=== PATIENT | male | born 1960 | race Caucasian/White ===

== ENCOUNTER → 2017-04-08 | Outpatient (REF) ==
--- NOTE | 2017-04-08 11:07 | Diagnostic Imaging Report ---
INDICATION: Right knee pain and popping. TIME OF EXAM: 11:11 AM. FINDINGS: Three views of the right knee demonstrate medial and patellofemoral compartmental degenerative change with joint space narrowing and marginal spurring. There is spurring of the tibial spines. The lateral compartment is well maintained. No fracture, dislocation, or effusion is detected. IMPRESSION: Degenerative changes. No acute bony abnormality is detected. Dictated by: Dictated on workstation # [id number]
== END | disposition home or self-care (01) ==
LOC: OCC 10:30
PROVIDERS: ATTEND Nurse Practitioner Family
CPT/HCPCS: 73562

== ENCOUNTER → 2017-04-10 | Outpatient (REF) ==
--- NOTE | 2017-04-10 10:28 | Diagnostic Imaging Report ---
PROCEDURE: MRI right joint lower extremity without contrast. TECHNIQUE: Multiplanar, multisequence non contrast-enhanced MRI of the right lower extremity was accomplished. INDICATION: Right medial knee pain with popping for several weeks, pain progressively getting worse. No known injury. COMPARISON: Radiographs from 04/08/2017. FINDINGS: No acute fracture or dislocation is seen in the right knee. There is a severe osteoarthritis in the medial compartment of the right knee with underlying bone marrow edema and articular surface irregularity. Osteophytes are seen in all three compartments. A small joint effusion is seen. The articular cartilage in the patellofemoral compartment demonstrates a focal fissure overlying the medial facet. The articular cartilage in the medial compartment is nearly completely absent. The lateral compartment articular cartilage demonstrates heterogeneity and surface irregularity without large full thickness defect seen. There is extensive complex degenerative tearing of the posterior horn and body of the medial meniscus. There are two multilobulated cyst like structures posterior to the posterior horn of the medial meniscus, one measuring 9 x 4 mm, and one measuring 17 x 5 mm on axial imaging, likely a parameniscal cyst. The lateral meniscus appears intact. The anterior and posterior cruciate ligaments are intact. The medial collateral ligament is thickened and bowed, related to the adjacent medial compartment pathology, but no discrete tear is seen. The lateral collateral ligamentous complex appears intact. The extensor mechanism is intact, with mild tendinosis of the proximal patellar tendon. There is mild edema in Hoffa's fat pad. Mild subcutaneous edema is seen anterior to the patellar tendon. The surrounding soft tissues about the knee are otherwise unremarkable. IMPRESSION: 1. Tricompartmental osteoarthritis of the right knee, most pronounced and severe in the medial compartment, with near complete cartilage loss in the medial compartment. 2. Extensive complex degenerative tearing of the posterior horn and body of the medial meniscus, with associated posterior para-meniscal cysts. 3. Small joint effusion. Dictated by: Dictated on workstation # [id number]
== END | disposition home or self-care (01) ==
LOC: RAD 08:50
PROVIDERS: ATTEND Nurse Practitioner Family
CPT/HCPCS: 73721

== ENCOUNTER 2019-08-04 09:10 | Outpatient (RCR) | payer BC ==
[2019-07-27 12:47] VITALS: BP 153/100
[2019-07-27 13:17] LABS: BASOPHILS % (AUTO) 0 % (0-10); EOSINOPHILS # (AUTO) 0.2 10^3/uL (0.0-0.3); EOSINOPHILS % (AUTO) 2 % (0-10); HEMATOCRIT 42 % (40-54); HEMOGLOBIN 14.5 G/DL (13.3-17.7); LYMPHOCYTES # (AUTO) 1.5 X 10^3 (1.0-4.0); LYMPHOCYTES % (AUTO) 21 % (12-44); MEAN CORPUSCULAR HEMOGLOBIN 32 PG (25-34); MEAN CORPUSCULAR HGB CONC 35 G/DL (32-36); MEAN CORPUSCULAR VOLUME 93 FL (80-99); MEAN PLATELET VOLUME 9.8 FL (7.4-10.4); MONOCYTES # (AUTO) 0.9 X 10^3 (0.0-1.0); MONOCYTES % (AUTO) 13 % (0-12); NEUTROPHILS # (AUTO) 4.6 X 10^3 (1.8-7.8); NEUTROPHILS % (AUTO) 64 % (42-75); PLATELET COUNT 238 10^3/uL (130-400); RED CELL DISTRIBUTION WIDTH 13.5 % (10.0-14.5); WHITE BLOOD COUNT 7.2 10^3/uL (4.3-11.0)
[2019-07-27 13:17] LABS: BILIRUBIN,URINE NEGATIVE (NEGATIVE); CLARITY,URINE CLEAR; COLOR,URINE YELLOW; GLUCOSE, URINE (UA) NEGATIVE (NEGATIVE); KETONES,URINE NEGATIVE (NEGATIVE); LEUKOCYTE ESTERASE ,URINE NEGATIVE (NEGATIVE); NITRITE,URINE NEGATIVE (NEGATIVE); PROTEIN,URINE NEGATIVE (NEGATIVE)
[2019-07-27 13:37] LABS: ALANINE AMINOTRANSFERASE 42 U/L (0-55); ALBUMIN 4.1 GM/DL (3.2-4.5); ALKALINE PHOSPHATASE 70 U/L (40-136); BILIRUBIN,TOTAL 0.6 MG/DL (0.1-1.0); BUN/CREATININE RATIO 16; CARBON DIOXIDE 28 MMOL/L (21-32); CHLORIDE 103 MMOL/L (98-107); CREATININE SERUM 0.92 MG/DL (0.60-1.30); GFR ESTIMATED > 60; GLUCOSE 91 MG/DL (70-105); SODIUM 138 MMOL/L (135-145)
[2019-07-27 13:50] LABS: INR 0.9 (0.8-1.4); PROTHROMBIN TIME PATIENT 12.4 SEC (12.2-14.7)
[2019-07-27 13:51] LABS: AMORPHOUS SEDIMENT,UR RARE AMOR URATES /LPF; BACTERIA,URINE NEGATIVE /HPF; WBC,URINE 0-2 /HPF
[2019-07-27 13:59] LABS: ERYTHROCYTE SEDIMENTATION RATE 5 MM/HR (0-30)
--- NOTE | 2019-07-27 16:22 | Diagnostic Imaging Report ---
INDICATION: Preop for right total knee replacement. TIME OF EXAM: 1:20 PM. COMPARISON: No prior studies are available for comparison. FINDINGS: The heart size is normal. There is some tortuosity of the descending thoracic aorta. Lungs are hyperinflated consistent with COPD. No infiltrates are seen. There is no effusion or pneumothorax. IMPRESSION: COPD. No acute cardiopulmonary process is detected. Dictated by: Dictated on workstation # [id number]
[~2019-08-04] VITALS: Ht 182 cm; Wt 95.9 kg
[~2019-08-04 09:10] MED LIST: MULT-1136 PO
== END 2019-08-04 14:46 | disposition home or self-care (01) ==
LOC: PREOP 09:10
PROVIDERS: ATTEND Orthopaedic Surgery
DX: Z01.810 Encounter for preprocedural cardiovascular examination (principal); Z01.811 Encounter for preprocedural respiratory examination; Z01.812 Encounter for preprocedural laboratory examination; M17.11 Unilateral primary osteoarthritis, right knee; R53.83 Other fatigue; Z11.2 Encounter for screening for other bacterial diseases; Z11.59 Encounter for screening for other viral diseases; J44.9 Chronic obstructive pulmonary disease, unspecified
CPT/HCPCS: 36415; 71046; 80053; 81000; 85025; 85610; 85652; 86850; 86900; 86901; 87081; 87635; 93005

== ENCOUNTER 2019-08-09 09:47 | Inpatient (IN) | payer BC ==
--- NOTE | 2019-07-31 12:09 | HISTORY AND PHYSICAL ---
DATE OF SERVICE: 08/09/2019 DATE OF ADMISSION: 08/09/2019. This will be for inpatient admission on 08/09/2019 for right total knee arthroplasty. The patient will require regular inpatient admission due to comorbidities, pain management and need for physical therapy. HISTORY OF PRESENT ILLNESS: The patient is a 58-year-old gentleman with complaints of progressively worsening right knee pain. He has undergone treatment with injections and anti-inflammatories as well as activity modifications without relief. He reports activity limitations due to the pain in his knee. He reports no recent injuries. Due to functional impairment and failure to improve with conservative measures, the patient elected to proceed with surgical intervention. REVIEW OF SYSTEMS: No chest pain, no shortness of breath, no dysuria. RADIOGRAPHS: Reveal complete loss of medial patellofemoral joint space sclerosis noted in his medial compartment. PAST MEDICAL HISTORY: Denies. PAST SURGICAL HISTORY: Right rotator cuff. FAMILY HISTORY: Significant for ischemic heart disease. PRIMARY CARE PHYSICIAN: None. MEDICATIONS: Aspirin. ALLERGIES: No known drug allergies. SOCIAL HISTORY: The patient drinks alcohol socially. Denies tobacco use. PHYSICAL EXAMINATION: GENERAL: The patient is well-developed, well-nourished, in no acute distress. HEENT: Normocephalic, atraumatic. Pupils are equal, round and reactive to light. Oropharynx is clear. NECK: Supple, no lymphadenopathy. LUNGS: Clear to auscultation bilaterally. HEART: Regular rate and rhythm. ABDOMEN: Soft, nontender, nondistended. EXTREMITIES: the right knee demonstrates range of motion 0/2/125. There is a mild effusion. There is no erythema or warmth. There is negative Miroslava, negative anterior and posterior drawer. No varus valgus laxity, negative pivot shift. He is tender along his posterior medial joint line. He has marked pain with Katharina's medially. There is crepitus with range of motion. IMPRESSION: Severe right knee osteoarthritis, unresponsive to conservative measures. PLAN: Right total knee arthroplasty. The risks, benefits, options, ramifications and recovery have been discussed at length with the patient. He understands and wishes to proceed. Job ID: [id number] DocumentID: [id number] Dictated Date: 07/31/2019 10:32:27 Assistant Child Care Teacher Date: 07/31/2019 12:08:30 Dictated By: CHAI SHAY MD
[2019-08-09] VITALS (10 sets, daily range): BP systolic 86–150; BP diastolic 60–103
[~2019-08-09] VITALS: Ht 182.9 cm; Wt 97.4 kg
[~2019-08-09 09:47] MED LIST changes: +ACETAMINOPHEN 325 MG TABLET PO PRN; +ONDANSETRON 4 MG/2 ML (SDV) Z0FRAN IVP PRN; +diphenhydrAMINE 50 MG/ML INJ (BENADRYL) IVP PRN; +morphine PCA 100 MG/100 ML BAG IV PRN
[2019-08-09] MEDS ORDERED: MIDAZOLAM 2 MG/2 ML (VERSED) VIAL ONE (09:57)
[2019-08-09] MEDS ORDERED: BUPIVACAINE 0.5% 30 ML (SENSORCAINE) VIAL ONE (09:57)
[2019-08-09] MEDS ORDERED: fentaNYL INJECTION 100 MCG/2 ML AMP ONE (09:57)
[2019-08-09] MEDS ORDERED: CEFUROXIME 1.5 GM (ZINACEF) VIAL ONE (10:25)
[2019-08-09] MEDS ORDERED: WATER (STERILE) FOR INJECTION 20 ML ONE (10:25)
--- OUTSIDE RECORDS SUMMARY | 2019-08-09 10:26 | XMS REPORT | Continuity of Care Document ---
Author Organization Unknown Address Unknown Phone Unavailable Allergies Active Description Code Type Severity Reaction Onset Reported/Identified Relationship to Patient Clinical Status Yes No Known Drug Allergies [id number] Drug Allergy Unknown N/A 07/27/2019 Medications There is no data. Problems Date Dx Coded Attending Type Code Diagnosis Diagnosed By 08/01/2019 LAURITA MCINTOSH, CHAI Sidhu Ot M17.11 UNILATERAL PRIMARY OSTEOARTHRITIS, RIGHT 08/01/2019 LAURITA MCINTOSH, CHAI Sidhu Ot Z01.818 ENCOUNTER FOR OTHER PREPROCEDURAL EXAMIN Procedures There is no data. Results Test Result Range [facility] - 05/25/19 11:17 GLUCOSE 86 mg/dL 65-99 UREA NITROGEN (BUN) 18 mg/dL 7-25 CREATININE 1.02 mg/dL 0.70-1.33 eGFR NON-AFR. DJIBOUTIAN 81 mL/min/1.73m2 > OR = 60 eGFR 93 mL/min/1.73m2 > OR = 60 BUN/CREATININE RATIO NOT APPLICABLE (calc) 6-22 SODIUM 138 mmol/L 135-146 POTASSIUM 4.4 mmol/L 3.5-5.3 CHLORIDE 102 mmol/L 98-110 CARBON DIOXIDE 30 mmol/L 20-32 CALCIUM 9.2 mg/dL 8.6-10.3 PROTEIN, TOTAL 6.6 g/dL 6.1-8.1 ALBUMIN 4.4 g/dL 3.6-5.1 GLOBULIN 2.2 g/dL (calc) 1.9-3.7 ALBUMIN/GLOBULIN RATIO 2.0 (calc) 1.0-2. 5 BILIRUBIN, TOTAL 0.7 mg/dL 0.2-1.2 ALKALINE PHOSPHATASE 81 U/L 35-144 AST 37 U/L 10-35 ALT 36 U/L 9-46 CBC - 05/25/19 11:17 WHITE BLOOD CELL COUNT 6.1 Thousand/uL 3 .8-10.8 RED BLOOD CELL COUNT 4.84 Million/uL 4.2 0-5.80 HEMOGLOBIN 15.1 g/dL 13.2-17.1 HEMATOCRIT 45.5 % 38.5-50.0 MCV 94.0 fL 80.0-100.0 MCH 31.2 pg 27.0-33.0 MCHC 33.2 g/dL 32.0-36.0 RDW 13.0 % 11.0-15.0 PLATELET COUNT 253 Thousand/uL 140-400 MPV 10.5 fL 7.5-12.5 ABSOLUTE NEUTROPHILS 3843 cells/uL 1500- 7800 ABSOLUTE LYMPHOCYTES 1470 cells/uL 850-3 900 ABSOLUTE MONOCYTES 634 cells/uL 200-950 ABSOLUTE EOSINOPHILS 122 cells/uL 15-500 ABSOLUTE BASOPHILS 31 cells/uL 0-200 NEUTROPHILS 63 % NRG LYMPHOCYTES 24.1 % NRG MONOCYTES 10.4 % NRG EOSINOPHILS 2.0 % NRG BASOPHILS 0.5 % NRG Complete blood count (CBC) with automate d white blood cell (WBC) differential - 07/27/19 13:00 Blood leukocytes automated count (number/volume) 7.2 10*3/uL 4.3-11.0 Blood erythrocytes automated count (number/volume) 4.52 10*6/uL 4.35-5.85 Venous blood hemoglobin measurement (mass/volume) 14.5 g/dL 13.3-17.7 Blood hematocrit (volume fraction) 42 % 40-54 Automated erythrocyte mean corpuscular volume 93 [ foz_us] 80-99 Automated erythrocyte mean corpuscular h emoglobin (mass per erythrocyte) 32 pg 25-34 Automated erythrocyte mean corpuscular h emoglobin concentration measurement (mass/volume) 35 g/dL 32-36 Automated erythrocyte distribution width ratio 13. 5 % 10.0- 14.5 Automated blood platelet count (count/volume) 238 10*3/uL 130-400 Automated blood platelet mean volume measurement 9.8 [foz_us] 7.4-10.4 Automated blood neutrophils/100 leukocytes 64 % 42-75 Automated blood lymphocytes/100 leukocytes 21 % 12-44 Blood monocytes/100 leukocytes 13 % 0-12 Automated blood eosinophils/100 leukocytes 2 % 0-10 Automated blood basophils/100 leukocytes 0 % 0-10 Blood neutrophils automated count (number/volume) 4.6 10*3 1.8-7.8 Blood lymphocytes automated count (number/volume) 1.5 10*3 1.0-4.0 Blood monocytes automated count (number/volume) 0. 9 10*3 0.0-1.0 Automated eosinophil count 0.2 10*3/uL 0 .0-0.3 Automated blood basophil count (count/volume) 0.0 10*3/uL 0.0-0.1 Comprehensive metabolic panel - 07/27/19 13:00 Serum or plasma sodium measurement (moles/volume) 138 mmol/L 135-145 Serum or plasma potassium measurement (moles/volume) 4.0 mmol/L 3.6-5.0 Serum or plasma chloride measurement (moles/volume) 103 mmol/L 98-107 Carbon dioxide 28 mmol/L 21-32 Serum or plasma anion gap determination (moles/volume) 7 mmol/L 5-14 Serum or plasma urea nitrogen measurement (mass/volume ) 15 mg/dL 7-18 Serum or plasma creatinine measurement (mass/volume) 0.92 mg/dL 0.60-1.30 Serum or plasma urea nitrogen/creatinine mass ratio 16 NRG Serum or plasma creatinine measurement w ith calculation of estimated glomerular filtration rate > NRG Serum or plasma glucose measurement (mass/volume) 91 mg/dL 70-105 Serum or plasma calcium measurement (mass/volume) 9.0 mg/dL 8.5-10.1 Serum or plasma total bilirubin measurement (mass/volu me) 0.6 mg/dL 0.1-1.0 Serum or plasma alkaline phosphatase mya surement (enzymatic activity/volume) 70 U/L 40-136 Serum or plasma aspartate aminotransfera se measurement (enzymatic activity/volume) 42 U/L 5-34 Serum or plasma alanine aminotransferase measurement (enzymatic activity/volume) 42 U/L 0-55 Serum or plasma protein measurement (mass/volume) 7.0 g/dL 6.4-8.2 Serum or plasma albumin measurement (mass/volume) 4.1 g/dL 3.2-4.5 CALCIUM CORRECTED 8.9 mg/dL 8.5-10.1 PT panel in platelet poor plasma by coag ulation assay - 07/27/19 13:00 Prothrombin time (PT) in platelet poor plasma by coagu lation assay 12.4 s 12.2-14.7 INR in platelet poor plasma or blood by coagulation as say 0.9 0.8-1.4 Erythrocyte sedimentation rate by ludy gren method - 05/14/20 13:00 Erythrocyte sedimentation rate by westergren method 5 mm 0- 30 Blood type T Indirect antibody screen pa marisel - 07/27/19 13:00 ABO+Rh group AP NRG Blood group antibody screen NEGATIVE NR G Complete urinalysis with reflex to cultu re - 07/27/19 13:05 Urine color determination YELLOW NRG Urine clarity determination CLEAR NR G Urine pH measurement by test strip 6.0 5-9 Specific gravity of urine by test strip 1.020 1.016-1.022 Urine protein assay by test strip, semi-quantitative NEGATIVE NEGATIVE Urine glucose detection by automated test strip NE GATIVE NEGATIVE Erythrocytes detection in urine sediment by light micr oscopy NEGATIVE NEGATIVE Urine ketones detection by automated test strip NE GATIVE NEGATIVE Urine nitrite detection by test strip NEGATIVE NEGATIVE Urine total bilirubin detection by test strip NEGA TIVE NEGATIVE Urine urobilinogen measurement by automated test strip (mass/volume) 0.2 mg/dL < = 1.0 Urine leukocyte esterase detection by dipstick NEG ATIVE NEGATIVE Automated urine sediment erythrocyte cou nt by microscopy (number/high power field) NONE NRG Automated urine sediment leukocyte count by microscopy (number/high power field) [HPF] NRG Bacteria detection in urine sediment by light microsco py NEGATIVE NRG Crystals detection in urine sediment by light microsco py PRESENT NRG Casts detection in urine sediment by light microscopy NONE NRG Mucus detection in urine sediment by light microscopy NEGATIVE NRG Complete urinalysis with reflex to culture NO NRG Amorphous sediment detection in urine sediment by ligh t microscopy RARE ALEX URATES NRG Methicillin resistant Staphylococcus aur eus (MRSA) screening culture - 07/27/19 13:05 Methicillin resistant Staphylococcus aureus (MRSA) scr eening culture NEG NRG Coronavirus SARS-CoV-2 SO 2019 0 14:00 Coronavirus Ab [Units/volume] in Serum Negative Negative Encounters ACCT No. Visit Date/Time Discharge Status Pt. Type Provider Facility Loc./Unit Complaint [id number] 05/25/2019 10:30:00 05/25/2019 23:59: 59 CLS Outpatient [facility] [id number] 05/25/2019 10:30:00 Document Registration [id number] 08/04/2019 09:10:00 020 14:46:00 DIS Outpatient LAURITA MCINTOSH, CHAI [facility] PREOP RIGHT KNEE OSTEOARTHRI TIS [id number] 04/10/2017 08:50:00 018 23:59:59 CLS Outpatient SYL KEBEDE [facility] RAD RT KNEE PAIN [id number] 04/08/2017 10:30:00 018 23:59:59 CLS Outpatient SYL KEBEDE [facility] OCC RIGHT KNEE PAIN AND POP PING [id number] 08/09/2019 09:47:[address] Inpatient LAURITA MCINTOSH, CHAI Sidhu [facility] SURG RIGHT KNEE OSTEOARTHRITIS
[2019-08-09] MEDS ORDERED: LACTATED RINGERS 1,000 ML IV PRN (10:36)
[2019-08-09] MEDS ORDERED: INTRA-ARTICULAR IU ONE ×5 (10:45)
[2019-08-09] MEDS ORDERED: CEFUROXIME INJECTION 1,500 MG in WATER (STERILE) FOR INJECTION 15 ML IV ONE (10:45)
[2019-08-09] MEDS ORDERED: TRANEXAMIC ACID 100 MG/ML 10 ML INJECTION IV ONE (11:01)
--- NOTE | 2019-08-09 11:04 | Progress Note-Pre Operative ---
Pre-Operative Progress Note H&P Reviewed The H&P was reviewed, patient examined and no changes noted. Date Seen by Provider: August 09, 2019 Time Seen by Provider: 11:03 Date H&P Reviewed: August 09, 2019 Time H&P Reviewed: 11:03 Pre-Operative Diagnosis: right knee primary osteorthritis CHAI SHAY MD August 09, 2019 11:04
--- NOTE | 2019-08-09 11:07 | Progress Note-Post Operative ---
Post-Operative Progess Note Surgeon (s)/Seasonal Warehouse Associate (s) Surgeon CHAI SHAY MD Seasonal Warehouse Associate: Shivam Enciso Pre-Operative Diagnosis right knee primary osteorthritis Post-Operative Diagnosis right knee primary osteorthritis Procedure & Operative Findings Date of Procedure 08/09/19 Procedure Performed/Findings right total knee arthroplasty Anesthesia Type GETA Estimated Blood Loss Estimated blood loss (mL): minimal Specimens/Packing Specimens Removed none Packing: none CHAI SHAY MD August 09, 2019 11:07
--- NOTE | 2019-08-09 11:10 | D/C HH Face to Face Order ---
D/C Face to Face Orders Reconcile Patient Problems Problems Reviewed?: Yes Instructions for Patient [facility], Patient Instructions/FollowUp: three weeks Physician to follow Patient: three weeks Discharge Diet for Home: Regular Diet Patient Data-Allergies,Ht & Wt Patient Allergies: Coded Allergies: No Known Drug Allergies (Unverified , 07/27/19) Home Health Need/Face to Face Date of Face to Face: August 09, 2019 Clinical Findings: Muscle weakness, Pain with ambulation, Unsteady gait I have seen Pt [id number]: Yes Discharged To: Home Diagnosis/Conditions: right total knee arthroplasty Patient is Homebound due to: Didi fall risk due to instabilty, Muscle w eakness, Pain w/ambulation Homebound Status Due to the above stated illness, injury or surgical procedure (medical condition or diagnosis) and associated clinical findings, the patient is homebound because of his/her inability to leave home except with aid of a supportive device and/or person AND leaving the home requires a considerable and taxing effort or is medically contraindicated. Pt req the following assistanc: [facility] Home Health Nursing Orders Home Health Services Order: Physical Therapy-Evaluate & Treat DC knee jada and apply steri strips 08/23/19 Home Health Infusion Therapy Line Start Date: August 09, 2019 Therapy Orders Therapy Orders: Physical Therapy, PT to assess for OT Therapy Specific Orders: Eval assistive deivces, Teach enviro modifications/safety, Gait training, Increase strength/endurance, Provider maintenance therapy, Restore ROM Certify Stmt I certify that this patient is under my care and that I, a nurse practitioner or a physician; a nursing assistants teacher working with me, had a face to face encounter that - meets the physician face to face encounter requirements with this patient as dated. CHAI SHAY MD August 09, 2019 11:10
[2019-08-09] MEDS ORDERED: HYDROmorphone 2 MG/ML VIAL (DILAUDID) ONE ×2 (11:18→13:04)
[2019-08-09] MEDS ORDERED: SEVOFLURANE (ULTANE) 15 ML INHAL SOLN ONE (12:10)
[2019-08-09] MEDS ORDERED: ONDANSETRON 4 MG/2 ML (SDV) Z0FRAN ONE (12:27)
[2019-08-09] MEDS ORDERED: NS IV 1000 ML 1,000 ML ONE (12:39)
[2019-08-09] MEDS ORDERED: MEPERIDINE (DEMEROL) INJ 50 MG/ML IVP ONE (13:00)
[2019-08-09] MEDS ORDERED: ONDANSETRON 4 MG/2 ML (SDV) Z0FRAN IVP PRN (13:00)
[2019-08-09] MEDS ORDERED: HYDROmorphone 2 MG/ML VIAL (DILAUDID) IV ONE (13:00)
[2019-08-09] MEDS ORDERED: morphine PCA 100 MG/100 ML BAG IV ONE (13:10)
--- NOTE | 2019-08-09 13:28 | Diagnostic Imaging Report ---
INDICATION: Right knee surgery. Time of exam: 1:07 PM. FINDINGS: Two views of the right knee demonstrate postop changes of total knee arthroplasty. The prosthetic elements appear to be in good position. No fracture or loosening is seen. There are overlying skin jada. IMPRESSION: Satisfactory postop appearance to the right knee. Dictated by: Dictated on workstation # [id number]
--- NOTE | 2019-08-09 13:32 | Progress Note ---
Standard Progress Note Progress Notes/Assess & Plan Date Seen by a Provider: August 09, 2019 Time Seen by a Provider: 13:31 Progress/Assessment & Plan post op check no complaints radiographs--HW well positioned without fracture RLE--2plus DP pulse with brisk cap refill. Intact sensation throughout. Intact DF and PF of toes and ankle s/p RTKA mobilize as able CHAI SHAY MD August 09, 2019 13:32
--- NOTE | 2019-08-09 13:45 | NUR ---
KATHLEEN BOYD admitted to room OR-4, with an admitting diagnosis of right TKR , on 08/09/19 [place] [facility] [place], accompanied by Rita dominguez RN.KATHLEEN BOYD introduced to surroundings, call light, bed controls, phone, TV, temperature control, lights, meal times, smoking policy, visitor policy, side rail policy, bathrooms and showers. Patient Rights given to patient in the handbook. KATHLEEN BOYD verbalizes understanding that [facility] is not responsible for the loss or damage to any personal effects or valuables that are kept in the patients posession during their hospitalization. KATHLEEN BOYD verbalizes understanding of Interdisciplinary Patient Education. Patient and/or family were informed about the Rapid Response Team and its purpose.
[2019-08-09] MEDS: NS IV 1000 ML 1,000 ML IV SCH ×2 (13:53→21:05)
[2019-08-09] MEDS: SENNA W/DOCUSATE (SENOKOT S) TABLET PO SCH ×2 (13:54→21:05)
--- NOTE | 2019-08-09 14:58 | Physical Therapy Evaluation ---
PT Evaluation-General Medical Diagnosis Admission Date August 09, 2019 at 09:47 Medical Diagnosis: s/p (R) TKA Onset Date: August 09, 2019 Therapy Diagnosis Therapy Diagnosis: limited mobility Precautions Precautions/Isolations: Standard Precautions Referral Physician: Kenneth Burkett MD Reason for Referral: Evaluation/Treatment Medical History Additional Medical History (R) RCR Current History Underwent (R) TKA 08/09/19 Reviewed History: Yes Social History Home: Single Level Current Living Status: Significant Other Prior Prior Level of Function SCALE: Activities may be completed with or without assistive devices. 2-Mnwvuezpzy-ofqfiko completes the activity by him/herself with no assistance from a helper. 5-Set-up or Clean-up Assistance-helper sets up or cleans up; patient completes activity. [place] assists only prior to or following the activity. 4-Supervision or Touching Assistance-helper provides verbal cues and/or touching/steadying and/or contact guard assistance as patient completes activity. Assistance may be provided throughout the activity or intermittently. 3-Partial/Moderate Assistance-helper does LESS THAN HALF the effort. [place] lifts, holds or supports trunk or limbs, but provides less than half the effort. 2-Substantial/Maximal Assistance-helper does MORE THAN HALF the effort. [place] lifts or holds trunk or limbs and provides more than half the effort. 7-Gpkwnyyca-jcsydn does ALL the effort. Patient does none of the effort to complete the activity. Or, the assistance of 2 or more helpers is required for the patient to complete the activity. If activity was not attempted, code reason: 7-Patient Refused. 9-Not Applicable-not attempted and the patient did not perform the activity before the current illness, exacerbation or injury. 10-Not Attempted due to Environmental Limitations-(lack of equipment, weather restraints, etc.). 88-Not Attempted due to Medical Conditions or Safety Concerns. Bed Mobility: 6 Transfers (B,C,W/C): 6 Gait: 6 Stairs: 6 Indoor Mobility (Ambulation): Independent Stairs: Independent Prior Devices Use: None PT Evaluation-Current Subjective (R) knee pain on arrival, with pt very lethargic throughout treatment. Pain Numeric Pain Scale: 8 Location: Right Location Body Site: Knee Pain Description: Stabbing, Sharp Pt/Family Goals Return home Objective Patient Orientation: Person, Place, Time, Situation Attachments: Oxygen, IV ROM/Strength ROM Upper Extremities WFL ROM Lower Extremities (R) knee PROM flexion 0-75 degrees, (L) knee 0-135 degrees Strength Upper Extremities WFL Strength Lower Extremities Pt was able to assist with sit to/from supine and during AAROM (R) knee flexion. Sensory Vision: Functional Hearing: Functional Sensation Right Upper Extremit: Intact Sensation Left Upper Extremity: Intact Sensation Right Lower Extremit: Intact Sensation Left Lower Extremity: Intact Transfers Roll Left to Right (QC): 4 Sit to Lying (QC): 4 Lying to Sitting/Side of Bed(Q: 4 Gait Does the Patient Walk?: No and Walking Goal IS indicated Mode of Locomotion: Walk Anticipated Mode of Locomotion: Walk Comments/Gait Description Did not attempt standing or ambulation due to lethargy. Balance Sitting Static: Good Sitting Dynamic: Fair Assessment/Needs Pt is very lethargic throughout the evaluation, but he was able to sit edge of bed for 2min without requiring assist. Rehab Potential: Good PT Short Term Goals Short Term Goals Time Frame: August 12, 2019 Roll Left & Right: 6 Sit to lyin Lying to sitting on side of be: 6 Sit to stand: 6 Chair/qrz-aw-klkev transfer: 6 Toilet transfer: 6 Car transfer: 6 Walk 10 feet: 6 Walk 50 feet with two turns: 6 Walk 150 feet: 6 Walking 10ft on uneven surface: 6 1 step (curb): 6 4 steps: 5 12 steps: 5 PT Plan Problem List Problem List: Activity Tolerance, Functional Strength, Gait, Transfer, ROM Treatment/Plan Treatment Plan: Continue Plan of Care Treatment Plan: Bed Mobility, Concurrent Therapy, Functional Activity Apple, Functional Strength, Gait, Therapeutic Exercise, Transfers Treatment Duration: August 12, 2019 Frequency: 11 times per week Estimated Hrs Per Day: .5 hour per day Patient and/or Family Agrees t: Yes Time/GCodes Time In: 1415 Time Out: 1445 Total Billed Treatment Time: 30 Total Billed Treatment 1edgardo (30) FANTASMA TAVAREZ PT August 09, 2019 14:58
[2019-08-09] MEDS: CEFUROXIME INJECTION 750 MG in WATER (STERILE) FOR INJECTION 10 ML IV SCH (16:03)
--- NOTE | 2019-08-09 16:44 | Consultation - Hospitalist ---
HPI History of Present Illness: HPI/Chief Complaint Papito Huerta (Larry) is a 59-year-old male with past medical history of osteoarthritis who presented for a right total knee arthroplasty. The hospitalist service has been consulted for medical comanagement. He has no complaints or concerns at this time. He does not take any medications on a regular basis. He has no past medical history of hypertension or diabetes. He is a nonsmoker. He drinks about 3 beers daily. He denies any history of alcohol withdrawal. Source: patient, family Date Seen 08/09/19 Attending Physician Kenneth Burkett MD PCP No,Local Physician Referring Physician Date of Admission August 09, 2019 at 09:47 Home Medications & Allergies Home Medications Reviewed patient Home Medication Reconciliation performed by pharmacy medication reconciliations light technician and/or nursing. Patients Allergies have been reviewed. Allergies Allergies Coded Allergies No Known Drug Allergies (Unverified08/09/19) Past Dewvbmf-Ayzhwp-Mprisw Hx Past Med/Social Hx: Reviewed Nursing Past Med/Soc Hx Patient Social History Alcohol Use: Occasionally Uses Recreational Drug Use: No Smoking Status: Never a Smoker Physical Abuse Screen: No Sexual Abuse: No Recent Foreign Travel: No Contact w/other who traveled: No Recent Hopitalizations: No Seasonal Allergies Seasonal Allergies: No Past Medical History Currently Using CPAP: No Currently Using BIPAP: No Sexually Transmitted Disease: No HIV/AIDS: No Loss of Vision: Denies Hearing Impairment: Denies History of Blood Disorders: No Adverse Reaction to Blood Courtney: No (N/A) Review of Systems Constitutional: no symptoms reported EENTM: no symptoms reported Respiratory: no symptoms reported Cardiovascular: no symptoms reported Gastrointestinal: no symptoms reported Genitourinary: no symptoms reported Musculoskeletal: no symptoms reported Skin: no symptoms reported Psychiatric/Neurological: No Symptoms Reported Physical Exam Physical Exam Vital Signs Vital Signs - First Documented Capillary Refill : Less Than 3 Seconds Height, Weight, BMI Height: '" Weight: lbs. oz. kg; 29.11 BMI Method: General Appearance: No Apparent Distress, WD/WN HEENT: PERRL/EOMI, Pharynx Normal Neck: Normal Inspection, Supple Respiratory: Lungs Clear, Normal Breath Sounds, No Respiratory Distress Cardiovascular: Regular Rate, Rhythm, No Edema, No Murmur Gastrointestinal: Normal Bowel Sounds, Non Tender, Soft Extremity: Normal Inspection, Non Tender, No Pedal Edema Neurologic/Psychiatric: Alert, No Motor/Sensory Deficits, Normal Mood/Affect; No Disoriented Skin: Normal Color, Warm/Dry Results Results/Procedures Labs Patient resulted labs reviewed. Imaging: Reviewed Imaging Report Assessment/Plan Assessment and Plan Assess & Plan/Chief Complaint Right knee osteoarthritis Status post total knee arthroplasty Orthopedic Surgery primary Pain regimen ordered Bowel regimen ordered Incentive spirometer PT/OT DVT prophylaxis: Lovenox Diagnosis/Problems Diagnosis/Problems (1) Osteoarthritis of right knee Status: Acute Qualifiers: Osteoarthritis type: primary Qualified Codes: M17.11 - Unilateral primary osteoarthritis, right knee (2) Status post total right knee replacement Status: Acute Clinical Quality Measures DVT/VTE Risk/Contraindication: Risk Factor Score Per Nursin RFS Level Per Nursing on Admit: 4+=Very High GEORGE RICO MD August 09, 2019 16:44
--- NOTE | 2019-08-09 19:48 | OPERATIVE REPORT ---
DATE OF SERVICE: 08/09/2019 PREOPERATIVE DIAGNOSIS: Right knee primary osteoarthritis. POSTOPERATIVE DIAGNOSIS: Right knee primary osteoarthritis. PROCEDURE: Right total knee arthroplasty. SURGEON: Kenneth Shay MD ART GILDER: BONILLA Estrada, who assisted throughout the procedure and closed the incision. ANESTHESIA: General endotracheal by Mary Anne De Leon CRNA. TOURNIQUET TIME: 70 minutes at 300 mmHg. ESTIMATED BLOOD LOSS: Minimal. DRAINS: None. COMPLICATIONS: None. POSTOPERATIVE PLAN: Routine protocol. The patient was transferred to the recovery room awake and in stable condition. MATERIALS: Microport cemented size 6 femur, cemented size 6+ tibia with 10 mm insert and a cemented size 35 patellar button. STATEMENT OF MEDICAL NECESSITY: The patient is a 59-year-old gentleman with longstanding progressive right knee pain. Radiographs revealed severe medial and patellofemoral joint space loss. He tried rest, activity modifications and injections without relief. Due to functional impairment and failure to improve with conservative measures, the patient elected to proceed with surgical intervention. DESCRIPTION OF PROCEDURE: After risks and benefits of the procedure were discussed and questions were answered, informed consent was signed and placed on chart, the operative site was confirmed in the preoperative holding area initialed by the surgeon. The patient was then transferred to the operating room and after adequate levels of general endotracheal anesthetic were obtained, a timeout was called, confirming the operative site. The right lower extremity was prepped and draped in the usual sterile fashion with the leg elevated and the knee flexed, tourniquet was inflated to 300 mmHg. Standard anterior approach was utilized. Hemostasis was obtained with cautery. Medial parapatellar arthrotomy was performed leaving 1 cm cuff on the patella for later reattachment. A portion of the fat pad was resected. A subperiosteal release was performed in the proximal medial tibia being careful stay on the bony surface. The ACL was resected. Intramedullary guide was passed into the femur and the distal cutting block was placed and distal cut was made, and femur was sized to a size 6. The 6 cutting block was placed parallel to the epicondylar axis and cuts were made from posterior to anterior. A subperiosteal release was then carefully performed on the posterior distal femur, being careful to stay on the bony surface. Intramedullary guide was passed into the tibia. The cutting block was placed. The drop betty transected the intermalleolar axis and the cut was made, 6+ baseplate was pinned into position and the drop betty transected the intermalleolar axis. This was then prepared with a drill and keel punch. The femoral trial was placed, and trochlear cut was made. The patella was prepared by resecting 10 mm off the undersurface. The peg guide was placed, and peg holes were drilled. The 35 trial was placed. The knee was taken through range of motion. Full extension was easily obtained under 20 degrees of flexion with gravity was easily obtained. There was no anterior/posterior or medial/lateral laxity in flexion or extension. The patella tracked well. The trials were removed. The joint was irrigated with pulse lavage. Periarticular block was placed in the posterior capsule, medial and lateral retinaculum extensor mechanism subcutaneous tissues. The bone ends were irrigated and dried. The tibial baseplate was cemented into position. Excessive cement was removed. The superior surface was irrigated and the polyethylene insert was placed. The distal femur was irrigated, and the femoral prosthesis was cemented into position. Excessive cement was removed. The knee was brought out into full extension until the cement had cured. The undersurface of the patella was irrigated and dried. The patellar button was cemented into position. Excessive cement was removed. Once the cement had cured, the knee was taken through range of motion. Full extension was easily obtained under 20 degrees of flexion with gravity was easily obtained. The patella tracked well. There is no anterior/posterior or medial/lateral laxity in flexion or extension. The joint was further irrigated and the arthrotomy was closed with #2 Tevdek in mzkmxz-ed-nbjik interrupted fashion. The knee was flexed, and the repair was stable. Subcutaneous tissues were irrigated using total of 6 liters throughout the procedure. A 0 Vicryl was used to deep subcutaneous tissue, 2-0 Vicryl for the superficial subcutaneous tissue, jada were used on the skin. A soft dressing was applied. The tourniquet was deflated. The patient was transferred to the recovery room, awake and in stable condition. Job ID: [id number] DocumentID: [id number] Dictated Date: 08/09/2019 12:47:34 Nursing Unit Coordinator Date: 08/09/2019 19:47:32 Dictated By: KENNETH SHAY MD
[2019-08-10] VITALS (7 sets, daily range): BP systolic 122–156; BP diastolic 67–91
[2019-08-10] MEDS: CEFUROXIME INJECTION 750 MG in WATER (STERILE) FOR INJECTION 10 ML IV SCH (00:13)
[2019-08-10] MEDS: NS IV 1000 ML 1,000 ML IV SCH ×2 (02:07→14:40)
[2019-08-10 05:12] LABS: HEMOGLOBIN 12.6 G/DL (13.3-17.7)
[2019-08-10] MEDS: MULTIVIT W/MINERALS TAB (THERAGRAN M) PO SCH (06:30)
--- NOTE | 2019-08-10 08:02 | Progress Note ---
Standard Progress Note Progress Notes/Assess & Plan Date Seen by a Provider: August 10, 2019 Time Seen by a Provider: 08:01 Progress/Assessment & Plan post op check no complaints radiographs--HW well positioned without fracture RLE--2plus DP pulse with brisk cap refill. Intact sensation throughout. Intact DF and PF of toes and ankle s/p RTKA mobilize as able Final Diagnosis no complaints Vital Signs Date Time Temp Pulse Resp B/P (MAP) Pulse Ox O2 Delivery O2 Flow Rate FiO2 08/10/19 06:38 136/85 (102) 98 Nasal Cannula 1.00 08/10/19 04:00 36.3 80 19 133/67 (89) 99 Nasal Cannula 2.50 08/10/19 00:00 36.5 59 21 140/75 (96) 95 Nasal Cannula 2.50 08/09/19 20:59 98 Nasal Cannula 2.00 08/09/19 20:40 36.2 69 17 137/81 (99) 98 Nasal Cannula 2.50 08/09/19 16:32 36.7 55 17 126/79 (95) 96 Nasal Cannula 2.50 08/09/19 15:13 96 Nasal Cannula 2.00 08/09/19 13:35 36.3 9 130/89 (103) 96 OxyMask 2 08/09/19 13:35 OxyMask 2 08/09/19 13:30 9 122/86 (98) 98 OxyMask 2 08/09/19 13:25 OxyMask 2 08/09/19 13:20 12 128/75 (92) 97 OxyMask 2 08/09/19 13:16 OxyMask 2 08/09/19 13:10 9 110/83 (92) 98 OxyMask 5 08/09/19 13:00 9 105/69 (81) 99 OxyMask 8 08/09/19 12:59 OxyMask 8 08/09/19 12:50 8 92/67 (75) 98 OxyMask 8 08/09/19 12:44 OxyMask 8 08/09/19 12:44 36.2 10 86/60 (69) 98 8 08/09/19 10:10 95 Room Air 08/09/19 10:10 37.1 76 18 150/103 95 Room Air I & O 08/10/19 07:00 Intake Total 4437 ml Output Total 2275 ml Balance 2162 ml Laboratory Tests Test 08/10/19 05:00 Range/Units Hemoglobin 12.6 L 13.3-17.7 G/DL Hematocrit 37 L 40-54 % RLE--dressing intact. no calf tenderness. Neg Ishan's. NVI distally s/p RTKA doing well continue PT/OT CHAI SHAY MD August 10, 2019 08:02
[2019-08-10] MEDS: ENOXAPARIN 30 MG/0.3 ML (LOVENOX) SYR SC SCH ×2 (08:34→20:31)
[2019-08-10] MEDS: oxyCODONE/APAP 5/325MG (PERCOCET 5) TABLET PO PRN ×4 (08:34→20:32)
[2019-08-10] MEDS: ASPIRIN E.C. 81 MG (ECOTRIN) TAB PO SCH (08:34)
[2019-08-10] MEDS: SENNA W/DOCUSATE (SENOKOT S) TABLET PO SCH ×2 (08:34→20:30)
--- NOTE | 2019-08-10 10:03 | Physical Therapy Daily Note ---
PT Daily Note-Current Subjective Patient is in bed and agrees to PT. Pain Numeric Pain Scale: 5-Moderate Pain Location: Right Location Body Site: Knee Pain Description: Acute Mental Status Patient Orientation: Normal For Age Attachments: IV Transfers SCALE: Activities may be completed with or without assistive devices. 8-Zpzehpavec-hohimbj completes the activity by him/herself with no assistance from a helper. 5-Set-up or Clean-up Assistance-helper sets up or cleans up; patient completes activity. [place] assists only prior to or following the activity. 4-Supervision or Touching Assistance-helper provides verbal cues and/or touching/steadying and/or contact guard assistance as patient completes activity. Assistance may be provided throughout the activity or intermittently. 3-Partial/Moderate Assistance-helper does LESS THAN HALF the effort. [place] lifts, holds or supports trunk or limbs, but provides less than half the effort. 2-Substantial/Maximal Assistance-helper does MORE THAN HALF the effort. [place] lifts or holds trunk or limbs and provides more than half the effort. 2-Owxnfqwer-bjwuwv does ALL the effort. Patient does none of the effort to complete the activity. Or, the assistance of 2 or more helpers is required for the patient to complete the activity. If activity was not attempted, code reason: 7-Patient Refused. 9-Not Applicable-not attempted and the patient did not perform the activity before the current illness, exacerbation or injury. 10-Not Attempted due to Environmental Limitations-(lack of equipment, weather restraints, etc.). 88-Not Attempted due to Medical Conditions or Safety Concerns. Roll Left & Right (QC): 6 Lying to Sitting/Side of Bed(Q: 6 Sit to Stand (QC): 6 Chair/Gkf-rr-Tlqhl Xfer(QC): 6 Gait Training Does the Patient Walk?: Yes Distance: >500' Walk 10 feet (QC): 6 Walk 50 ft with 2 Turns(QC): 6 Walk 150 ft (QC): 6 Gait Assistive Device: FWW steady, reciprocal pattern Exercises Supine Ex: Ankle pumps, Quad Set, Heel Slides, Straight leg raise Supine Reps: 15 Seated Therapy Exercises: Ankle pumps, Long arc quads Seated Reps: 15 Assessment Patient up in recliner with needs met. Patient progressing with treatment plan and will dismiss to home tomorrow. PT Short Term Goals Short Term Goals Time Frame: August 12, 2019 Roll Left & Right: 6 Sit to lyin Lying to sitting on side of be: 6 Sit to stand: 6 Chair/gwp-oq-owjyv transfer: 6 Toilet transfer: 6 Car transfer: 6 Walk 10 feet: 6 Walk 50 feet with two turns: 6 Walk 150 feet: 6 Walking 10ft on uneven surface: 6 1 step (curb): 6 4 steps: 5 12 steps: 5 PT Plan Treatment/Plan Treatment Plan: Continue Plan of Care Treatment Plan: Bed Mobility, Concurrent Therapy, Functional Activity Apple, Functional Strength, Gait, Therapeutic Exercise, Transfers Treatment Duration: August 12, 2019 Frequency: 11 times per week Estimated Hrs Per Day: .5 hour per day Patient and/or Family Agrees t: Yes Time/GCodes Time In: 838 Time Out: 903 Total Billed Treatment Time: 25 Total Billed Treatment 1 visit EX 14 min GT 11 min DEYANIRA JESSICA PT August 10, 2019 10:03
--- NOTE | 2019-08-10 11:18 | NUR ---
CM/SS visited with the patient for social service consult. Plan: The patient will discharge home with home health and a front wheeled walker. Home Health: The patient was provided a patient preference form and chose [facility]. CM/SS spoke with Sarina from the agency and made the referral. CM/SS faxed orders. DME: The patient was provided a choice form and chose [facility] in [place]. CM/SS contacted the agency and faxed script, H&P, and face sheet. They will deliver to the hospital. CM/SS will continue to follow.
--- NOTE | 2019-08-10 12:17 | Anesthesia-General Post-Op ---
General Patient Condition Mental Status/LOC: Same as Preop Cardiovascular: Satisfactory Nausea/Vomiting: Absent Respiratory: Satisfactory Pain: Controlled Complications: Absent Post Op Complications Complications None Follow Up Care/Instructions Patient Instructions None needed. Anesthesia/Patient Condition Patient Condition Patient is doing well, no complaints, stable vital signs, no apparent adverse anesthesia problems. No complications reported per nursing. CAMERON ONEAL CRNA August 10, 2019 12:17
--- NOTE | 2019-08-10 13:17 | Occ Therapy Progress Note ---
Therapy Progress Note OT order received, chart reviewed. OT talked with pt. Pt. in bed and nursing adjusting ice pack for comfort. OT explains to pt. purpose of OT and goals for independence. Pt. reports that he is doing well with transfers and mobility. States that he walked with PT, and was able to don his shorts with someone standing by. Pt. verbalizes that he will have help at home and is not concerned. OT explains equipment if needed to don socks, but pt. reports that he does not need this. Pt. verbalizes that he has no OT needs at this time. OT asks if he has any questions at all. Pt. verbalizes that he is concerned about a toilet riser or high toilet at home. His current toilet is low. OT educates pt. on equipment needs, and lets social work know that pt. will need toilet riser of some sort. No further OT needs at this time. Will be happy to come back if pt. feels he needs further training. Thank you for this referral. 1, visit [id number] Discharge pt. at this time. LORNE ODOM OT August 10, 2019 13:17
--- NOTE | 2019-08-10 13:26 | NUR ---
IRF Evaluation Order received to evaluate patient for the ARU. Chart review complete and it appears the patient is ambulating (>500ft, FWW), transferring, and completing bed mobility with independence; therefore, patient does not require intensive therapies. Thank you for this referral.
--- NOTE | 2019-08-10 14:55 | Physical Therapy Daily Note ---
PT Daily Note-Current Subjective Patient agrees to PT. Pain Numeric Pain Scale: 7 Location: Right Location Body Site: Knee Pain Description: Acute Mental Status Patient Orientation: Normal For Age Attachments: IV Transfers SCALE: Activities may be completed with or without assistive devices. 7-Iqsptnpwel-tbhtvil completes the activity by him/herself with no assistance from a helper. 5-Set-up or Clean-up Assistance-helper sets up or cleans up; patient completes activity. [place] assists only prior to or following the activity. 4-Supervision or Touching Assistance-helper provides verbal cues and/or touching/steadying and/or contact guard assistance as patient completes activity. Assistance may be provided throughout the activity or intermittently. 3-Partial/Moderate Assistance-helper does LESS THAN HALF the effort. [place] lifts, holds or supports trunk or limbs, but provides less than half the effort. 2-Substantial/Maximal Assistance-helper does MORE THAN HALF the effort. [place] lifts or holds trunk or limbs and provides more than half the effort. 6-Srbznbodf-cazrrs does ALL the effort. Patient does none of the effort to complete the activity. Or, the assistance of 2 or more helpers is required for the patient to complete the activity. If activity was not attempted, code reason: 7-Patient Refused. 9-Not Applicable-not attempted and the patient did not perform the activity before the current illness, exacerbation or injury. 10-Not Attempted due to Environmental Limitations-(lack of equipment, weather restraints, etc.). 88-Not Attempted due to Medical Conditions or Safety Concerns. Roll Left & Right (QC): 6 Sit to Lying (QC): 6 Lying to Sitting/Side of Bed(Q: 6 Sit to Stand (QC): 6 Gait Training Does the Patient Walk?: Yes Distance: 250' Walk 10 feet (QC): 6 Walk 50 ft with 2 Turns(QC): 6 Walk 150 ft (QC): 6 Gait Assistive Device: FWW reciprocal pattern with antalgic gait sequence Exercises Supine Ex: Ankle pumps, Quad Set, Heel Slides, Straight leg raise Supine Reps: 15 Seated Therapy Exercises: Long arc quads Seated Reps: 15 Treatments CPM 0-70 degrees with polar pack in place Assessment Patient progressing with treatment plan and will dismiss to home in a.m. PT reeducated patient on HEP issued by physician. Patient voices understanding. PT Short Term Goals Short Term Goals Time Frame: August 12, 2019 Roll Left & Right: 6 Sit to lyin Lying to sitting on side of be: 6 Sit to stand: 6 Chair/zkr-ar-nyhog transfer: 6 Toilet transfer: 6 Car transfer: 6 Walk 10 feet: 6 Walk 50 feet with two turns: 6 Walk 150 feet: 6 Walking 10ft on uneven surface: 6 1 step (curb): 6 4 steps: 5 12 steps: 5 PT Plan Treatment/Plan Treatment Plan: Continue Plan of Care Treatment Plan: Bed Mobility, Concurrent Therapy, Functional Activity Apple, Functional Strength, Gait, Therapeutic Exercise, Transfers Treatment Duration: August 12, 2019 Frequency: 11 times per week Estimated Hrs Per Day: .5 hour per day Patient and/or Family Agrees t: Yes Safety Risks/Education Patient Education: Issued Written HEP Time/GCodes Time In: 1400 Time Out: 1424 Total Billed Treatment Time: 24 Total Billed Treatment 1 visit EX 14 min GT 10 min DEYANIRA JESSICA PT August 10, 2019 14:55
[2019-08-11 00:49] VITALS: BP 143/82
[2019-08-11] MEDS: MULTIVIT W/MINERALS TAB (THERAGRAN M) PO SCH (04:52)
[2019-08-11] MEDS: oxyCODONE/APAP 5/325MG (PERCOCET 5) TABLET PO PRN ×3 (04:52→09:08)
[2019-08-11 04:53] VITALS: BP 139/85
[2019-08-11 06:25] LABS: HEMOGLOBIN 11.8 G/DL (13.3-17.7)
--- NOTE | 2019-08-11 06:57 | NUR ---
Morphine Sulfate COLORIST PHOTOGRAPHY and IVF discontinued. 60 MLs wasted with VIKKI Hamilton.
--- NOTE | 2019-08-11 07:04 | Progress Note ---
Standard Progress Note Progress Notes/Assess & Plan Date Seen by a Provider: August 11, 2019 Time Seen by a Provider: 07:03 Progress/Assessment & Plan post op check no complaints radiographs--HW well positioned without fracture RLE--2plus DP pulse with brisk cap refill. Intact sensation throughout. Intact DF and PF of toes and ankle s/p RTKA mobilize as able Final Diagnosis no complaints Vital Signs Date Time Temp Pulse Resp B/P (MAP) Pulse Ox O2 Delivery O2 Flow Rate FiO2 08/11/19 04:53 36.6 65 20 139/85 (103) 97 Room Air 08/11/19 00:49 36.2 61 22 143/82 (102) 96 Room Air 08/10/19 20:30 Room Air 08/10/19 20:29 36.1 73 17 155/90 (111) 97 Room Air 08/10/19 16:51 36.2 72 15 140/81 (100) 97 Room Air 08/10/19 12:35 37.1 52 19 122/75 (91) 99 Room Air 08/10/19 08:20 Nasal Cannula 2.00 08/10/19 08:00 36.7 73 19 156/91 (112) 99 Nasal Cannula 2.50 I & O 08/11/19 07:00 Intake Total 2500 ml Output Total 2100 ml Balance 400 ml Laboratory Tests Test 08/11/19 05:57 Range/Units Hemoglobin 11.8 L 13.3-17.7 G/DL Hematocrit 36 L 40-54 % RLE--incision clean and dry. no calf tenderness. Neg Ishan's. Neg SLR s/p RTKA doing well DC after PT today CHAI SHAY MD August 11, 2019 07:04
[2019-08-11] MEDS ORDERED: morphine INJ 4 MG/ML 1 ML (VIAL/SYRINGE) IVP PRN (07:15)
--- NOTE | 2019-08-11 07:16 | DISCHARGE SUMMARY ---
DATE OF SERVICE: DIAGNOSIS: Right knee osteoarthritis. PROCEDURE: Right total knee arthroplasty. SUMMARY: The patient is a 59-year-old gentleman who underwent a right total knee arthroplasty on the day of admission. Postoperatively, he did very well. At the time of discharge, his wound was clean and dry and no calf tenderness. Negative Ishan sign. He is tolerating his diet well and tolerating pain with oral pain medication. CONDITION AT DISCHARGE: Good. DISCHARGE DIET: Regular. FOLLOWUP: Followup is in three weeks. ACTIVITIES: Weightbearing as tolerated with assistive devices as needed. DISCHARGE MEDICATIONS: Percocet as needed for pain and one aspirin per day for four weeks. Job ID: [id number] DocumentID: [id number] Dictated Date: 08/10/2019 15:17:47 Psychologist Educational Date: 08/11/2019 07:15:54 Dictated By: CHAI SHAY MD
[2019-08-11 07:50] VITALS: BP 132/89
[2019-08-11] MEDS: ENOXAPARIN 30 MG/0.3 ML (LOVENOX) SYR SC SCH (09:07)
[2019-08-11] MEDS: SENNA W/DOCUSATE (SENOKOT S) TABLET PO SCH (09:07)
[2019-08-11] MEDS: ASPIRIN E.C. 81 MG (ECOTRIN) TAB PO SCH (09:08)
--- NOTE | 2019-08-11 09:35 | Physical Therapy Daily Note ---
PT Daily Note-Current Subjective Patient agrees to PT. No c/o. Pain Numeric Pain Scale: 5-Moderate Pain Location: Right Location Body Site: Knee Pain Description: Acute Mental Status Patient Orientation: Normal For Age Transfers SCALE: Activities may be completed with or without assistive devices. 4-Sypyuergdv-jumhvdp completes the activity by him/herself with no assistance from a helper. 5-Set-up or Clean-up Assistance-helper sets up or cleans up; patient completes activity. [place] assists only prior to or following the activity. 4-Supervision or Touching Assistance-helper provides verbal cues and/or touching/steadying and/or contact guard assistance as patient completes activity. Assistance may be provided throughout the activity or intermittently. 3-Partial/Moderate Assistance-helper does LESS THAN HALF the effort. [place] lifts, holds or supports trunk or limbs, but provides less than half the effort. 2-Substantial/Maximal Assistance-helper does MORE THAN HALF the effort. [place] lifts or holds trunk or limbs and provides more than half the effort. 3-Aiuqgbauj-nzzgcq does ALL the effort. Patient does none of the effort to complete the activity. Or, the assistance of 2 or more helpers is required for the patient to complete the activity. If activity was not attempted, code reason: 7-Patient Refused. 9-Not Applicable-not attempted and the patient did not perform the activity before the current illness, exacerbation or injury. 10-Not Attempted due to Environmental Limitations-(lack of equipment, weather restraints, etc.). 88-Not Attempted due to Medical Conditions or Safety Concerns. Roll Left & Right (QC): 6 Sit to Lying (QC): 6 Lying to Sitting/Side of Bed(Q: 6 Sit to Stand (QC): 6 Chair/Xmp-zm-Ftsqe Xfer(QC): 6 Gait Training Does the Patient Walk?: Yes Distance: 200' x 2 Walk 10 feet (QC): 6 Walk 50 ft with 2 Turns(QC): 6 Walk 150 ft (QC): 6 Gait Assistive Device: FWW slow, reciprocal pattern Stair Training Stair Training: Handrails/: 1 handrail, uses walker #of Steps: 4 1 Step (curb) (QC): 5 4 Steps (QC): 5 Stairs: Pattern: Step to Exercises Supine Ex: Ankle pumps, Quad Set, Heel Slides, Straight leg raise Supine Reps: 15 Seated Therapy Exercises: Long arc quads Seated Reps: 15 Assessment Patient tolerated treatment well and has been instructed to perform HEP issued by physician 3/daily prior to home health starting. Patient will dismiss to home with spouse this a.m. PT Short Term Goals Short Term Goals Time Frame: August 12, 2019 Roll Left & Right: 6 Sit to lyin Lying to sitting on side of be: 6 Sit to stand: 6 Chair/hzx-hz-binmw transfer: 6 Toilet transfer: 6 Car transfer: 6 Walk 10 feet: 6 Walk 50 feet with two turns: 6 Walk 150 feet: 6 Walking 10ft on uneven surface: 6 1 step (curb): 6 4 steps: 5 12 steps: 5 PT Plan Treatment/Plan Treatment Plan: Discontinue PT, goals met Treatment Plan: Bed Mobility, Concurrent Therapy, Functional Activity Apple, Functional Strength, Gait, Therapeutic Exercise, Transfers Treatment Duration: August 12, 2019 Frequency: 11 times per week Estimated Hrs Per Day: .5 hour per day Patient and/or Family Agrees t: Yes Time/GCodes Time In: 855 Time Out: 907 Total Billed Treatment Time: 12 Total Billed Treatment 1 visit FA 12 min DEYANIRA JESSICA PT August 11, 2019 09:35
--- NOTE | 2019-08-11 09:53 | NUR ---
CM/SS follow up. The patient states he is feeling well today. He is staying at a different address currently. His temporary [address] is [address], [place] CM/SS contacted [place] to inform them of this. They verbalized understanding. Marisel from [facility] [place] for all contacted this ss and asked if the patients transportation would be able to pick walker up and bring to hospital. The patient reports that his ride will be able to pick it up. CM/SS notified the agency. No further needs at this time.
--- NOTE | 2019-08-11 11:00 | NUR ---
DR SHAY D/Kiet'D PT THIS AM WHEN DOING ROUNDS. PT SAW [facility] AT AROUND 0900. HIS RIDE CAME TO GET HIM AND HE LEFT THE FLOOR AT 1100 WITH STAFF. HE LEFT IN PRIVATE VEHICLE WITH GIRLFRIEND.
== END 2019-08-11 11:42 | disposition home health service (06) | DRG 470 ==
LOC: 4TH 09:47 → SURG 09:48 → 4TH 13:50
PROVIDERS: ADMIT Orthopaedic Surgery; ATTEND Orthopaedic Surgery
PROC: 0SRC0J9 Replacement of Right Knee Joint with Synthetic Substitute, Cemented, Open Approach (ICD-10-PCS; principal; 2019-08-09 11:25)
DX: M17.11 Unilateral primary osteoarthritis, right knee (principal)
CPT/HCPCS: 36415; 73560; 85014; 85018; 86850; 86900; 86901; 94664

== ENCOUNTER 2020-05-02 12:30 | Outpatient (RCR) | payer BC ==
[~2020-05-02] VITALS: Ht 182.9 cm; Wt 96.4 kg
[~2020-05-02 12:30] MED LIST changes: -ACETAMINOPHEN 325 MG TABLET PO PRN; -ONDANSETRON 4 MG/2 ML (SDV) Z0FRAN IVP PRN; -diphenhydrAMINE 50 MG/ML INJ (BENADRYL) IVP PRN; -morphine PCA 100 MG/100 ML BAG IV PRN
[2020-05-02 12:41] VITALS: BP 140/90
[2020-05-02] MEDS ORDERED: LISI10TA25 PO (12:44)
[2020-05-02 13:14] LABS: BASOPHILS % (AUTO) 1 % (0-10); EOSINOPHILS # (AUTO) 0.1 10^3/uL (0.0-0.3); EOSINOPHILS % (AUTO) 2 % (0-10); HEMATOCRIT 43 % (40-54); HEMOGLOBIN 14.2 g/dL (13.3-17.7); LYMPHOCYTES # (AUTO) 1.5 10^3/uL (1.0-4.0); LYMPHOCYTES % (AUTO) 20 % (12-44); MEAN CORPUSCULAR HEMOGLOBIN 31 pg (25-34); MEAN CORPUSCULAR HGB CONC 33 g/dL (32-36); MEAN CORPUSCULAR VOLUME 94 fL (80-99); MEAN PLATELET VOLUME 9.9 fL (9.0-12.2); MONOCYTES % (AUTO) 13 % (0-12); NEUTROPHILS # (AUTO) 5.1 10^3/uL (1.8-7.8); NEUTROPHILS % (AUTO) 65 % (42-75); PLATELET COUNT 254 10^3/uL (130-400); WHITE BLOOD COUNT 7.7 10^3/uL (4.3-11.0)
[2020-05-02 13:24] LABS: BILIRUBIN,URINE NEGATIVE (NEGATIVE); CLARITY,URINE CLEAR; COLOR,URINE YELLOW; GLUCOSE, URINE (UA) NEGATIVE (NEGATIVE); KETONES,URINE NEGATIVE (NEGATIVE); LEUKOCYTE ESTERASE ,URINE NEGATIVE (NEGATIVE); NITRITE,URINE NEGATIVE (NEGATIVE); PH,URINE 7.5 (5-9); PROTEIN,URINE NEGATIVE (NEGATIVE)
[2020-05-02 13:24] LABS: INR 0.9 (0.8-1.4); PROTHROMBIN TIME PATIENT 12.2 SEC (12.2-14.7)
--- NOTE | 2020-05-02 13:30 | Diagnostic Imaging Report ---
INDICATION: Evaluation prior to knee arthroplasty.. TECHNIQUE: Two view chest 1:13 PM CORRELATION STUDY: 07/27/2019 FINDINGS: The heart size, mediastinal configuration and pulmonary vasculature are within normal limits. Tortuous course of the descending thoracic aorta. The lungs remain mildly hyperinflated. Slight nodular density of the right lung apex, stable. No consolidating infiltrate. There is no significant pleural effusion or pneumothorax. Mildly prominent degenerative change of the thoracic spine with disc space and marginal osteophyte formation. IMPRESSION: 1. Negative for acute abnormality of the chest. Hyperinflated lung guajardo favoring probable COPD. Dictated by: Dictated on workstation # [id number]
[2020-05-02 13:32] LABS: BACTERIA,URINE NEGATIVE /HPF; SQUAMOUS EPITHELIAL CELL,UR 0-2 /HPF
[2020-05-02 13:34] LABS: ALANINE AMINOTRANSFERASE 43 U/L (0-55); ALBUMIN 3.8 GM/DL (3.2-4.5); ALKALINE PHOSPHATASE 84 U/L (40-136); BILIRUBIN,TOTAL 0.4 MG/DL (0.1-1.0); BUN/CREATININE RATIO 18; CALCIUM 8.8 MG/DL (8.5-10.1); CARBON DIOXIDE 26 MMOL/L (21-32); CHLORIDE 104 MMOL/L (98-107); GFR ESTIMATED > 60; GLUCOSE 100 MG/DL (70-105); POTASSIUM 4.7 MMOL/L (3.6-5.0); SODIUM 137 MMOL/L (135-145); TOTAL PROTEIN 6.7 GM/DL (6.4-8.2)
[2020-05-03 14:55] LABS: ERYTHROCYTE SEDIMENTATION RATE 2 MM/HR (0-30)
== END 2020-05-03 10:00 | disposition home or self-care (01) ==
LOC: PREOP 12:30
PROVIDERS: ATTEND Orthopaedic Surgery
DX: Z01.812 Encounter for preprocedural laboratory examination (principal); Z01.810 Encounter for preprocedural cardiovascular examination; Z01.811 Encounter for preprocedural respiratory examination; M17.12 Unilateral primary osteoarthritis, left knee; R91.8 Other nonspecific abnormal finding of lung field; Z20.822 Contact with and (suspected) exposure to COVID-19; Z96.659 Presence of unspecified artificial knee joint
CPT/HCPCS: 36415; 71046; 80053; 81000; 85025; 85610; 85652; 86850; 86900; 86901; 87081; 93005

== ENCOUNTER → 2020-05-06 | Outpatient (CLI) | payer BC ==
[~2020-05-06] MED LIST changes: +LISI10TA25 PO
== END ==
LOC: LAB FS 10:00
PROVIDERS: ATTEND Orthopaedic Surgery
DX: Z01.812 Encounter for preprocedural laboratory examination (principal); M17.12 Unilateral primary osteoarthritis, left knee; Z20.822 Contact with and (suspected) exposure to COVID-19
CPT/HCPCS: 87635

== ENCOUNTER 2020-05-08 06:01 | Inpatient (IN) | payer BC ==
--- NOTE | 2020-05-02 06:51 | HISTORY AND PHYSICAL ---
DATE OF SERVICE: ADMISSION HISTORY AND PHYSICAL DATE OF ADMISSION: 05/08/2020. Date of service, date of surgery, and date of admission will be 05/08/2020. The patient will require regular inpatient admission due to pain management, need for physical therapy, gait abnormalities. HISTORY OF PRESENT ILLNESS: The patient is a 59-year-old gentleman with longstanding progressive left knee pain. He has undergone treatment in the past with injections with temporary relief of his symptoms. He has undergone right total knee arthroplasty with good results in the past. He reports pain on the medial aspect of his left knee. He also reports anterior pain with popping and snapping and activity limitations. Because of the knee and because of this, he has elected to proceed with surgical intervention. REVIEW OF SYSTEMS: No chest pain, no shortness of breath, and no dysuria. PAST MEDICAL HISTORY: Unremarkable. PAST SURGICAL HISTORY: Right rotator cuff and right total knee arthroplasty. FAMILY HISTORY: Significant for ischemic heart disease. MEDICATIONS: Aspirin, oxycodone, and cyclobenzaprine. ALLERGIES: No known drug allergies. SOCIAL HISTORY: The patient drinks alcohol socially. Denies tobacco use. RADIOGRAPHS: Reveal complete loss of medial patellofemoral joint spaces with osteophyte formation in all three compartments. PHYSICAL EXAMINATION: GENERAL: The patient is well-developed, well-nourished, in no acute distress. HEENT: Normocephalic and atraumatic. Pupils are equal, round and reactive to light. Oropharynx is clear. NECK: Supple, no lymphadenopathy. LUNGS: Clear to auscultation bilaterally. HEART: Regular rate and rhythm. ABDOMEN: Soft, nontender, and nondistended. EXTREMITIES: Left knee demonstrates varus alignment. He has moderate effusion. His range of motion is 0/2/125. No varus or valgus laxity. Negative anterior and posterior drawer. He ambulates with an antalgic gait. IMPRESSION: Left knee severe osteoarthritis, unresponsive to conservative measures. PLAN: Left total knee arthroplasty. The risks, benefits, options, ramifications and recovery have been discussed at length with the patient. He understands and wishes to proceed. Job ID: [id number] DocumentID: [id number] Dictated Date: 04/29/2020 11:06:02 Emergency Services Professional Date: 04/29/2020 11:13:48 Dictated By: CHAI SHAY MD
[~2020-05-08] VITALS: Ht 182 cm; Wt 96.6 kg
[2020-05-08] VITALS (11 sets, daily range): BP systolic 88–124; BP diastolic 47–92
[2020-05-08] MEDS ORDERED: CEFUROXIME INJECTION 1,500 MG in WATER (STERILE) FOR INJECTION 15 ML IV ONE (06:15)
[2020-05-08] MEDS ORDERED: MIDAZOLAM 2 MG/2 ML (VERSED) VIAL ONE (06:44)
[2020-05-08] MEDS ORDERED: fentaNYL INJECTION 100 MCG/2 ML AMP ONE (06:44)
[2020-05-08] MEDS ORDERED: CEFUROXIME 1.5 GM/15 ML (ZINACEF) VIAL ONE (06:56)
[2020-05-08] MEDS ORDERED: WATER (STERILE) FOR INJECTION 20 ML ONE (06:56)
[2020-05-08] MEDS ORDERED: proPOfol 200 MG/20 ML (DIPRIVAN) VIAL IV ONE (07:09)
[2020-05-08] MEDS ORDERED: ONDANSETRON 4 MG/2 ML (SDV) Z0FRAN ONE (07:10)
[2020-05-08] MEDS ORDERED: ROCURONIUM 10 MG/ML 5 ML SYRINGE IV ONE (07:10)
[2020-05-08] MEDS: LACTATED RINGERS 1,000 ML IV PRN ×2 (07:10→09:34)
[2020-05-08] MEDS ORDERED: LIDOCAINE PF 2% 5 ML (XYLOCAINE) VIAL ONE (07:10)
[2020-05-08] MEDS ORDERED: TRANEXAMIC ACID 100 MG/ML 10 ML INJECTION ONE (07:10)
[2020-05-08] MEDS ORDERED: morphine PCA 100 MG/100 ML BAG IV PRN (07:15)
[2020-05-08] MEDS ORDERED: ONDANSETRON 4 MG/2 ML (SDV) Z0FRAN IVP PRN ×2 (07:15→08:45)
[2020-05-08] MEDS ORDERED: diphenhydrAMINE 50 MG/ML INJ (BENADRYL) IVP PRN (07:15)
[2020-05-08] MEDS ORDERED: ACETAMINOPHEN 325 MG TABLET PO PRN (07:15)
[2020-05-08] MEDS ORDERED: BUPIVACAINE 0.5% 30 ML (SENSORCAINE) VIAL ONE (07:16)
[2020-05-08] MEDS ORDERED: INTRA-ARTICULAR IU ONE ×5 (07:30)
--- NOTE | 2020-05-08 07:30 | Progress Note-Pre Operative ---
Pre-Operative Progress Note H&P Reviewed The H&P was reviewed, patient examined and no changes noted. Date Seen by Provider: May 08, 2020 Time Seen by Provider: 07:20 Date H&P Reviewed: May 08, 2020 Time H&P Reviewed: 07:11 Pre-Operative Diagnosis: left knee primary osteoarthritis CHAI SHAY MD May 08, 2020 07:29
--- NOTE | 2020-05-08 07:30 | Progress Note-Post Operative ---
Post-Operative Progess Note Surgeon (s)/Elevator Constructor Electric (s) Surgeon CHAI SHAY MD Elevator Constructor Electric: jass Enciso Pre-Operative Diagnosis left knee primary osteoarthritis Post-Operative Diagnosis left knee primary osteoarthritis Procedure & Operative Findings Date of Procedure 05/08/20 Procedure Performed/Findings left total knee arthroplasty Anesthesia Type GETA Estimated Blood Loss Estimated blood loss (mL): minimal Specimens/Packing Specimens Removed none Packing: none CHAI SHAY MD May 08, 2020 07:30
--- NOTE | 2020-05-08 07:33 | D/C HH Face to Face Order ---
D/C Face to Face Orders Reconcile Patient Problems Problems Reviewed?: Yes Instructions for Patient Via Valeria Blowtorch, Patient Instructions/FollowUp: three weeks Physician to follow Patient: three weeks Discharge Diet for Home: Regular Diet Patient Data-Allergies,Ht & Wt Patient Allergies: Coded Allergies: No Known Drug Allergies (Unverified , 08/09/19) Home Health Need/Face to Face Date of Face to Face: May 08, 2020 Clinical Findings: Instability, Muscle weakness, Pain with ambulation, Unsteady gait I have seen Pt qsfv-ef-bwbq: Yes Discharged To: Home Diagnosis/Conditions: left total knee arthroplasty Patient is Homebound due to: Didi fall risk due to instabilty, Muscle weakness, Pain w/ambulation Homebound Status Due to the above stated illness, injury or surgical procedure (medical condition or diagnosis) and associated clinical findings, the patient is homebound because of his/her inability to leave home except with aid of a supportive device and/or person AND leaving the home requires a considerable and taxing effort or is medically contraindicated. Pt req the following assistanc: Walker Home Health Nursing Orders Home Health Services Order: Physical Therapy-Evaluate & Treat DC left knee jada and apply steri strips 05/22/20 Home Health Infusion Therapy Line Start Date: May 08, 2020 Therapy Orders Therapy Orders: Physical Therapy, PT to assess for OT Therapy Specific Orders: Eval assistive deivces, Teach enviro modifications/safety, Gait training, Increase strength/endurance, Provider maintenance therapy, Restore ROM Certify Stmt I certify that this patient is under my care and that I, a nurse practitioner or a physician; a chemist assistant working with me, had a face to face encounter that - meets the physician face to face encounter requirements with this patient as dated. CHAI SHAY MD May 08, 2020 07:33
[2020-05-08] MEDS ORDERED: SEVOFLURANE (ULTANE) 15 ML INHAL SOLN ONE ×3 (07:44→09:44)
[2020-05-08] MEDS ORDERED: PHENYLEPHRINE 100 MCG/ML 10 ML (ANESTHESIA) SYR ONE (07:44)
[2020-05-08] MEDS ORDERED: HYDROmorphone 2 MG/ML VIAL (DILAUDID) ONE (08:16)
[2020-05-08] MEDS ORDERED: morphine INJ 10 MG/ML 1ML (SYR OR VIAL) IVP ONE (08:45)
[2020-05-08] MEDS ORDERED: HYDROmorphone 2 MG/ML VIAL (DILAUDID) IV ONE (08:45)
[2020-05-08] MEDS ORDERED: GLYCOPYRROLATE 0.2 MG/ML (ROBINUL) 2 ML VIAL ONE (09:08)
[2020-05-08] MEDS ORDERED: NEOSTIGMINE 3 MG/3 ML VIAL ONE (09:08)
[2020-05-08] MEDS ORDERED: morphine INJ 10 MG/ML 1ML (SYR OR VIAL) ONE (10:26)
--- NOTE | 2020-05-08 10:53 | Progress Note ---
Standard Progress Note Progress Notes/Assess & Plan Date Seen by a Provider: May 08, 2020 Time Seen by a Provider: 10:40 Progress/Assessment & Plan post op check no complaints radiographs--HW well positioned without fracture LLE-- 2 plus DP pulse with brisk cap refill, sensation intact throughout to light touch. intact DF and PF of toes and ankle s/p LTKA mobilize as able CHAI SHAY MD May 08, 2020 10:53
[2020-05-08] MEDS: SENNA W/DOCUSATE (SENOKOT S) TABLET PO SCH ×2 (12:56→20:03)
--- NOTE | 2020-05-08 14:11 | Diagnostic Imaging Report ---
INDICATION: Status post knee replacement. COMPARISON: None. FINDINGS: Two views of the left knee were obtained. Expected postoperative changes are seen from left knee total arthroplasty. Femoral and tibial components appear well-seated. There is no evidence of periprosthetic fracture. There is a small amount of subcutaneous emphysema in the soft tissues over the knee. Skin jada are seen centrally over the anterior aspect of the knee. No unexpected radiopaque foreign bodies are identified. IMPRESSION: Expected postsurgical changes from left knee total arthroplasty, as described above. No unexpected radiopaque foreign bodies. Dictated by: Dictated on workstation # [id number]
--- NOTE | 2020-05-08 14:25 | OPERATIVE REPORT ---
DATE OF SERVICE: 05/08/2020 PREOPERATIVE DIAGNOSIS: Left knee primary osteoarthritis. POSTOPERATIVE DIAGNOSIS: Left knee primary osteoarthritis. PROCEDURE: Left total knee arthroplasty. SURGEON: Kenneth Shay MD HUNTING AND FISHING GUIDE: Shivam Enciso, who assisted throughout the procedure and closed the incision. ANESTHESIA: General endotracheal by Dr. Means. TOURNIQUET TIME: Approximately 100 minutes at 300 mmHg. ESTIMATED BLOOD LOSS: Minimal. DRAINS: None. COMPLICATIONS: None. POSTOPERATIVE PLAN: Routine protocol. MATERIALS: Microport cemented size 7 femur, cemented size 7 tibia with a 10 mm insert and cemented size 35 patellar button. STATEMENT OF MEDICAL NECESSITY: The patient is a 59-year-old gentleman with long-standing progressive left knee pain. Radiographs revealed severe medial and patellofemoral arthrosis. He had progressive loss of function despite extensive conservative measures and because of this, I elected to proceed with surgical intervention. DESCRIPTION OF PROCEDURE: After risks and benefits of procedure were discussed and questions were answered, an informed consent was signed and placed on the chart. The operative site was confirmed in the preoperative holding area initialed by the surgeon. The patient was then transferred to the operating room and after adequate levels of general endotracheal anesthetic were obtained, a timeout was called, confirming the operative site. The left lower extremity was prepped and draped in the usual sterile fashion with the leg elevated and the knee flexed, the tourniquet was inflated to 300 mmHg. Standard anterior approach was utilized. Hemostasis was obtained with cautery. Medial parapatellar arthrotomy was performed leaving 1 cm cuff on the patella for later reattachment. A portion of the fat pad was resected. The ACL was resected. The intramedullary guide was passed into the femur. The distal cutting block was placed and distal cut was made. The femur was sized to a size 7, 7 cutting block was placed parallel to the epicondylar axis and cuts were made from posterior to anterior. A posterior release was performed, the patient was very tight posteriorly. The PCL was resected as well. The tibia was then prepared by placing the intramedullary betty and the cutting block. The cutting block was positioned and the drop betty transected the intermalleolar axis. Cuts were made, the tibial baseplate was placed. The patella was prepared using the freehand technique by resecting 10 mm off the undersurface. The peg guide was placed and peg holes were drilled. The knee was tight in flexion and extension. Therefore, additional cuts were made on the tibia until the 10 mm insert could be placed. The 10 mm insert was placed and full extension was easily obtained, a 120 degrees of flexion with gravity was easily obtained. The patella tracked well. There was no anterior/posterior or medial/lateral laxity in flexion or extension. The trials were removed. The joint was irrigated with pulse lavage. Periarticular block was placed in the posterior capsule, medial and lateral retinaculum extensor mechanism, subcutaneous tissues. The bone ends were irrigated and dried. The tibia was prepared with a drill and keel punch and prior to this, tibial baseplate was cemented into position. Excessive cement was removed, the superior surface was irrigated and dried and the polyethylene insert was placed. Distal femur was irrigated and dried. The femoral prosthesis was cemented in position. Excessive cement was removed. The knee was brought out in full extension until cement had cured. The undersurface of patella was irrigated and dried. The patellar button was cemented into position. Excessive cement was removed. The joint was irrigated with pulse lavage. Once the cement had cured, the knee was taken through range of motion, 120 degrees of flexion with gravity was easily obtained. The patella tracked well. Full extension was obtained. There was no anterior/posterior or medial/lateral laxity in flexion or extension. The joint was further irrigated with pulse lavage. The arthrotomy was closed with #2 Tevdek in gzuzbo-wy-ossyi interrupted fashion. The knee was flexed and the repair was stable and the patella tracked well. The subcutaneous tissues were further irrigated with pulse lavage using a total of 6 liters throughout the procedure. A 0 Vicryl was used for deep subcutaneous tissue, 2-0 Vicryl for the superficial subcutaneous tissue, jada used on the skin. A soft dressing was applied. The tourniquet was deflated. The patient was transferred to the recovery room awake and in stable condition. Job ID: [id number] DocumentID: [id number] Dictated Date: 05/08/2020 09:44:01 Proj Engineer Date: 05/08/2020 14:24:15 Dictated By: KENNETH SHAY MD
--- NOTE | 2020-05-08 15:04 | Physical Therapy Evaluation ---
PT Evaluation-General Medical Diagnosis Admission Date May 08, 2020 at 06:01 Medical Diagnosis: left TKA Onset Date: May 08, 2020 Therapy Diagnosis Therapy Diagnosis: impaired mobility, strength, endurance, ROM Precautions Precautions/Isolations: Fall Prevention Weight Bear Status Left Lower Extremity: Left Weight Bearing/Tolerated Referral Physician: Fernie Reason for Referral: Evaluation/Treatment Medical History Additional Medical History PAST MEDICAL HISTORY: Unremarkable. PAST SURGICAL HISTORY: Right rotator cuff and right total knee arthroplasty. Reviewed History: Yes Social History Home: Single Level Current Living Status: Alone Entry Into Home: Stairs With Railing PT Steps Into Home: 2 Patient states he is going to go stay with somebody who will assist him after discharging from here, he seemed unwilling to elaborate on this. Prior Prior Level of Function SCALE: Activities may be completed with or without assistive devices. 3-Osoqzxfyxd-rthagdd completes the activity by him/herself with no assistance from a helper. 5-Set-up or Clean-up Assistance-helper sets up or cleans up; patient completes activity. [place] assists only prior to or following the activity. 4-Supervision or Touching Assistance-helper provides verbal cues and/or touching/steadying and/or contact guard assistance as patient completes activity. Assistance may be provided throughout the activity or intermittently. 3-Partial/Moderate Assistance-helper does LESS THAN HALF the effort. [place] lifts, holds or supports trunk or limbs, but provides less than half the effort. 2-Substantial/Maximal Assistance-helper does MORE THAN HALF the effort. [place] lifts or holds trunk or limbs and provides more than half the effort. 2-Qtfmcriot-vmesbz does ALL the effort. Patient does none of the effort to complete the activity. Or, the assistance of 2 or more helpers is required for the patient to complete the activity. If activity was not attempted, code reason: 7-Patient Refused. 9-Not Applicable-not attempted and the patient did not perform the activity before the current illness, exacerbation or injury. 10-Not Attempted due to Environmental Limitations-(lack of equipment, weather restraints, etc.). 88-Not Attempted due to Medical Conditions or Safety Concerns. Bed Mobility: 6 Transfers (B,C,W/C): 6 Gait: 6 Stairs: 6 Indoor Mobility (Ambulation): Independent Stairs: Independent PT Evaluation-Current Subjective Patient in bed pre tx, agrees to PT, has 3/10 pain in left knee. Pt/Family Goals to be independent at home Objective Patient Orientation: Person, Place, Situation Attachments: Oxygen, IV Patient didn't want to put O2 back on after tx, nurse notified. ROM/Strength ROM Lower Extremities left knee flexion 80 degrees, extension +3 degrees Sensory Vision: Functional Hearing: Functional Sensation Right Lower Extremit: Intact Sensation Left Lower Extremity: Intact Transfers Roll Left to Right (QC): 6 Sit to Lying (QC): 6 Lying to Sitting/Side of Bed(Q: 6 Sit to Stand (QC): 4 Chair/Hvm-fg-Zjhtu Xfer(QC): 4 Gait Does the Patient Walk?: Yes Mode of Locomotion: Walk Anticipated Mode of Locomotion: Walk Walk 10 feet (QC): 4 Walk 50 ft with 2 Turns(QC): 4 Walk 150 ft (QC): 4 Distance: 150' Gait Assistive Device: FWW Comments/Gait Description Patient ambulates slow but steady, keeps left knee extended, tends to pick remover walker to move it forward instead of just pushing it, good step through and weight bearing though. Balance Sitting Static: Normal Sitting Dynamic: Normal Standing Static: Good Standing Dynamic: Good Treatment LLE total knee protocol x10 (AP, QS, HS, SAQ, SLR), CPM donned and fit to leg and set to 60/-2. Assessment/Needs Patient in bed post tx with nurse call, phone, tray, CPM donned, SCD's on but no machine nurse aide says she will get one, polar care on. Patient has impaired mobility, strength, endurance, ROM. Patient CGA for transfers and ambulation. Rehab Potential: Fair PT Heat And Vent Aircraft Mechanic Goals Intermediate Goals PT Heat And Vent Aircraft Mechanic Goals Time Frame: May 15, 2020 Roll Left & Right (QC): 6 Sit to Lying (QC): 6 Lying-Sitting on Side/Bed(QC): 6 Sit to Stand (QC): 6 Chair/Drt-dy-Crwwv Xfer(QC): 6 Walk 10 feet (QC): 6 Walk 50ft with 2 Turns (QC): 6 Walk 150 ft (QC): 6 1 Step (curb) (QC): 6 4 Steps (QC): 6 PT Plan Problem List Problem List: Activity Tolerance, Functional Strength, Safety, Balance, Gait, Transfer, ROM Treatment/Plan Treatment Plan: Continue Plan of Care Treatment Plan: Education, Functional Activity Apple, Functional Strength, Gait, Safety, Therapeutic Exercise, Transfers Treatment Duration: May 15, 2020 Frequency: 11 times per week Estimated Hrs Per Day: .25 hour per day Patient and/or Family Agrees t: Yes Safety Risks/Education Patient Education: Gait Training, Transfer Techniques, Reviewed Use of Ice, Correct Positioning, Safety Issues Teaching Recipient: Patient Teaching Methods: Demonstration, Discussion Response to Teaching: Reinforcement Needed Discharge Recommendations Plan Patient will perform bed mobility and transfer training, balance and endurance training, functional strengthening, stair training, gait training, and education, to improve functional mobility and independence at home. Therapy Discharge Recommendati: Home & Family Time/GCodes Time In: 1433 Time Out: 1454 Total Billed Treatment Time: 21 Total Billed Treatment 1 visit EVKei 21' SO DUBOIS PT May 08, 2020 15:04
[2020-05-08] MEDS: CEFUROXIME INJECTION 750 MG in WATER (STERILE) FOR INJECTION 10 ML IV SCH ×2 (15:37→23:32)
[2020-05-08] MEDS: NS IV 1000 ML 1,000 ML IV SCH ×2 (15:37→20:01)
[2020-05-08] MEDS: oxyCODONE/APAP 5/325MG (PERCOCET 5) TABLET PO PRN (20:04)
[2020-05-09 00:11] VITALS: BP 110/66
[2020-05-09 04:24] VITALS: BP 104/62
[2020-05-09] MEDS: NS IV 1000 ML 1,000 ML IV SCH ×2 (04:24→22:13)
[2020-05-09] MEDS: oxyCODONE/APAP 5/325MG (PERCOCET 5) TABLET PO PRN ×5 (04:30→22:13)
[2020-05-09 06:03] LABS: HEMOGLOBIN 11.7 g/dL (13.3-17.7)
[2020-05-09] MEDS: MULTIVIT W/MINERALS TAB (THERAGRAN M) PO SCH (07:01)
--- NOTE | 2020-05-09 07:13 | Anesthesia-General Post-Op ---
General Patient Condition Mental Status/LOC: Same as Preop Cardiovascular: Satisfactory Nausea/Vomiting: Absent Respiratory: Satisfactory Pain: Controlled Complications: Absent Post Op Complications Complications None Follow Up Care/Instructions Patient Instructions None needed. Anesthesia/Patient Condition Patient Condition Patient is doing well, no complaints, stable vital signs, no apparent adverse anesthesia problems. No complications reported per nursing. CHRIS SIERRA CRNA May 09, 2020 07:13
--- NOTE | 2020-05-09 07:59 | Progress Note ---
Standard Progress Note Progress Notes/Assess & Plan Date Seen by a Provider: May 09, 2020 Time Seen by a Provider: 07:58 Progress/Assessment & Plan post op check no complaints radiographs--HW well positioned without fracture LLE-- 2 plus DP pulse with brisk cap refill, sensation intact throughout to light touch. intact DF and PF of toes and ankle s/p LTKA mobilize as able Final Diagnosis no complaints Vital Signs Date Time Temp Pulse Resp B/P (MAP) Pulse Ox O2 Delivery O2 Flow Rate FiO2 05/09/20 06:00 18 05/09/20 04:24 36.9 56 18 104/62 (76) 98 Room Air 05/09/20 00:11 36.7 65 20 110/66 (81) 96 Room Air 05/08/20 20:36 36.5 71 14 110/68 (82) 95 Room Air 05/08/20 19:50 95 Room Air 05/08/20 16:20 36.4 74 18 118/69 (85) 94 Room Air 05/08/20 16:19 18 05/08/20 15:49 18 05/08/20 12:21 36.6 76 18 119/72 (88) 95 Room Air 05/08/20 11:00 Nasal Cannula 2.00 05/08/20 11:00 36.6 76 18 119/72 (88) 95 Room Air 05/08/20 10:55 Nasal Cannula 2 05/08/20 10:42 18 109/64 (79) 92 Nasal Cannula 2 05/08/20 10:40 Nasal Cannula 2 05/08/20 10:27 21 119/72 (88) 93 Room Air 05/08/20 10:15 Room Air 05/08/20 10:12 10 109/63 (78) 94 OxyMask 2 05/08/20 09:57 13 98/59 (72) 97 OxyMask 5 05/08/20 09:57 OxyMask 5 05/08/20 09:42 36.1 14 88/50 (63) 97 OxyMask 10 05/08/20 09:42 OxyMask 10 I & O 05/09/20 07:00 Intake Total 7270 ml Output Total 925 ml Balance 6345 ml Laboratory Tests Test 05/09/20 05:10 Range/Units Hemoglobin 11.7 L 13.3-17.7 g/dL Hematocrit 35 L 40-54 % LLE--NVI distallly. No calf tenderness. Neg Homans dressing intact s/p LTKA doing well PT/OT CHAI SHAY MD May 09, 2020 07:59
[2020-05-09 08:00] VITALS: BP 126/67
[2020-05-09] MEDS: SENNA W/DOCUSATE (SENOKOT S) TABLET PO SCH ×2 (08:05→19:50)
[2020-05-09] MEDS: ASPIRIN E.C. 81 MG (ECOTRIN) TAB PO SCH (08:05)
[2020-05-09] MEDS: ENOXAPARIN 30 MG/0.3 ML (LOVENOX) SYR SC SCH ×2 (08:05→19:50)
[2020-05-09 12:00] VITALS: BP 125/69
--- NOTE | 2020-05-09 12:04 | Physical Therapy Daily Note ---
PT Daily Note-Current Subjective Patient agrees to PT. Mental Status Patient Orientation: Normal For Age Attachments: IV Transfers SCALE: Activities may be completed with or without assistive devices. 9-Efgmvrymmf-nrsvbpa completes the activity by him/herself with no assistance from a helper. 5-Set-up or Clean-up Assistance-helper sets up or cleans up; patient completes activity. [place] assists only prior to or following the activity. 4-Supervision or Touching Assistance-helper provides verbal cues and/or touching/steadying and/or contact guard assistance as patient completes activity. Assistance may be provided throughout the activity or intermittently. 3-Partial/Moderate Assistance-helper does LESS THAN HALF the effort. [place] lifts, holds or supports trunk or limbs, but provides less than half the effort. 2-Substantial/Maximal Assistance-helper does MORE THAN HALF the effort. [place] lifts or holds trunk or limbs and provides more than half the effort. 9-Rpsneszdf-vaabno does ALL the effort. Patient does none of the effort to complete the activity. Or, the assistance of 2 or more helpers is required for the patient to complete the activity. If activity was not attempted, code reason: 7-Patient Refused. 9-Not Applicable-not attempted and the patient did not perform the activity before the current illness, exacerbation or injury. 10-Not Attempted due to Environmental Limitations-(lack of equipment, weather restraints, etc.). 88-Not Attempted due to Medical Conditions or Safety Concerns. Sit to Lying (QC): 6 Lying to Sitting/Side of Bed(Q: 6 Sit to Stand (QC): 6 Toilet Transfer (QC): 6 Weight Bearing Left Lower Extremity: Left Weight Bearing/Tolerated Gait Training Does the Patient Walk?: Yes Distance: 400' Walk 10 feet (QC): 6 Walk 50 ft with 2 Turns(QC): 6 Walk 150 ft (QC): 6 Gait Assistive Device: FWW antalgic, functional gait sequence Exercises Supine Ex: Ankle pumps, Quad Set, Heel Slides, Straight leg raise Supine Reps: 15 Seated Therapy Exercises: Long arc quads Seated Reps: 15 Treatments CPM 0-[address] Assessment Progressing with treatment plan. Plan dismissal in a.m. PT Usp Goals Usp Goals PT Vocational Rehabilitation Administrator Goals Time Frame: May 15, 2020 Roll Left & Right (QC): 6 Sit to Lying (QC): 6 Lying-Sitting on Side/Bed(QC): 6 Sit to Stand (QC): 6 Chair/Spw-bs-Hunql Xfer(QC): 6 Walk 10 feet (QC): 6 Walk 50ft with 2 Turns (QC): 6 Walk 150 ft (QC): 6 1 Step (curb) (QC): 6 4 Steps (QC): 6 PT Plan Treatment/Plan Treatment Plan: Continue Plan of Care Treatment Plan: Education, Functional Activity Apple, Functional Strength, Gait, Safety, Therapeutic Exercise, Transfers Treatment Duration: May 15, 2020 Frequency: 11 times per week Estimated Hrs Per Day: .25 hour per day Patient and/or Family Agrees t: Yes Time/GCodes Time In: 830 Time Out: 854 Total Billed Treatment Time: 24 Total Billed Treatment 1 visit EX 12 min GT 12 min DEYANIRA JESSICA PT May 09, 2020 12:04
--- NOTE | 2020-05-09 14:06 | Occupational Therapy Eval ---
OT Evaluation-General/PLF Medical Diagnosis Admission Date May 08, 2020 at 06:01 Medical Diagnosis: left TKA Onset Date: May 08, 2020 Therapy Diagnosis Therapy Diagnosis: decreased ADL Status Precautions Precautions/Isolations: Fall Prevention, Standard Precautions Referral Physician: Fernie Sadler Reason: Evaluation/Treatment Medical History Additional Medical History R rotator cuff surgery, R TKA Current History s/p L TKA 05/08/20 Social History Home: Single Level Current Living Status: Alone Entry Into Home: Stairs With Railing Steps Into Home: 4 ADL-Prior Level of Function SCALE: Activities may be completed with or without assistive devices. 1-Bgdjlwbidy-gvvvtft completes the activity by him/herself with no assistance from a helper. 5-Set-up or Clean-up Assistance-helper sets up or cleans up; patient completes activity. [place] assists only prior to or following the activity. 4-Supervision or Touching Assistance-helper provides verbal cues and/or touching/steadying and/or contact guard assistance as patient completes activity. Assistance may be provided throughout the activity or intermittently. 3-Partial/Moderate Assistance-helper does LESS THAN HALF the effort. [place] lifts, holds or supports trunk or limbs, but provides less than half the effort. 2-Substantial/Maximal Assistance-helper does MORE THAN HALF the effort. [place] lifts or holds trunk or limbs and provides more than half the effort. 0-Zquvipzfn-bwxqyi does ALL the effort. Patient does none of the effort to complete the activity. Or, the assistance of 2 or more helpers is required for the patient to complete the activity. If activity was not attempted, code reason: 7-Patient Refused. 9-Not Applicable-not attempted and the patient did not perform the activity befo re the current illness, exacerbation or injury. 10-Not Attempted due to Environmental Limitations-(lack of equipment, weather re straints, etc.). 88-Not Attempted due to Medical Conditions or Safety Concerns. ADL PLOF Comments Pt indicates independent with ADLs and functional mobility at OF, no AE/AD. He has someone to take him home, and indicates someone may stay with him, but did not elaborate on this. Self Care: Independent Functional Cognition: Independent DME/Equipment: Bath Chair, Shower OT Current Status Subjective Pt agreeable to OT evaluation, did not report any pain. Mental Status/Objective Patient Orientation: Person, Place, Time, Situation Attachments: Other-See Comments (CPM) Current Glasses/Contacts: Yes Hearing Aids: No Dentures/Partials: No Hand Dominance: Right Upper Extremity ROM WFL Upper Extremity Coordination WFL Upper Extremity Strength WFL ADL-Treatment Eating (QC): 6 Oral Hygiene (QC): 7 Shower/Bathe Self (QC): 7 Toileting Hygiene (QC): 6 (Per pt report, able to manage clothing and perform hygiene) Other Treatments Pt laying in bed, CPM on. OT educated pt on purpose and benefit of OT, he verbalized understanding. Pt provided information about PLOF and home set up. OT encouraged pt to participate in ADL session, but he declined. Pt indicates he would like to later. OT again informed pt about the purpose of OT, but he continued to decline. OT educated pt on the purpose and benefits of exercise, encouraging him to participate in UE exercises. Pt again declined, stating he did not have any problems with his arm. OT reiterated the benefits of exercise, he declined. Pt stated he had no concerns wtih completing ADLs upon discharge home, and he plans to discharge tomorrow. Pt declined further OT services. Post tx, pt laying in bed, call light in reach and all needs met. Education OT Patient Education: Correct positioning, Modified ADL techniques, Progress toward Goal/Update tx plan, Purpose of tx/functional activities, Rehab process Teaching Recipient: Patient Teaching Methods: Discussion Response to Teaching: Verbalize Understanding OT Fdc Goals Fdc Goals 1=Demonstrate adherence to instructed precautions during ADL tasks. 2=Patient will verbalize/demonstrate understanding of assistive devices/modifications for ADL. 3=Patient will improve strength/tolerance for activity to enable patient to perform ADL's. OT Education/Plan Problem List/Assessment D/C from OT. Pt declined further OT txs, as he does not have any concerns about his ADL performance with returning home. Discharge Recommendations Plan/Recommendations: Discharge/Goals Met Treatment Plan/Plan of Care Treatment,Training & Education: Yes Patient would benefit from OT for education, treatment and training to promote independence in ADL's, mobility, safety and/or upper extremity function for ADL's. Plan of Care: ADL Retraining Treatment Duration: May 09, 2020 Frequency: 1 time per week (eval only) Rehab Potential: Fair Time/GCodes Start Time: 13:29 Stop Time: 13:37 Total Time Billed (hr/min): 8 Billed Treatment Time 1, BENJAMIN BOWEN OT May 09, 2020 14:06
--- NOTE | 2020-05-09 14:43 | Physical Therapy Daily Note ---
PT Daily Note-Current Subjective Patient is very agreeable to participate with therapy. Pain Numeric Pain Scale: 5-Moderate Pain Location: Left Location Body Site: Knee Pain Description: Acute Mental Status Patient Orientation: Normal For Age Attachments: Polar Pack, IV Transfers SCALE: Activities may be completed with or without assistive devices. 5-Yzlvlhuxxr-tkszqaa completes the activity by him/herself with no assistance from a helper. 5-Set-up or Clean-up Assistance-helper sets up or cleans up; patient completes activity. [place] assists only prior to or following the activity. 4-Supervision or Touching Assistance-helper provides verbal cues and/or touching/steadying and/or contact guard assistance as patient completes activity. Assistance may be provided throughout the activity or intermittently. 3-Partial/Moderate Assistance-helper does LESS THAN HALF the effort. [place] lift s, holds or supports trunk or limbs, but provides less than half the effort. 2-Substantial/Maximal Assistance-helper does MORE THAN HALF the effort. [place] lifts or holds trunk or limbs and provides more than half the effort. 4-Xfxcxqsyh-qanhws does ALL the effort. Patient does none of the effort to complete the activity. Or, the assistance of 2 or more helpers is required for the patient to complete the activity. If activity was not attempted, code reason: 7-Patient Refused. 9-Not Applicable-not attempted and the patient did not perform the activity before the current illness, exacerbation or injury. 10-Not Attempted due to Environmental Limitations-(lack of equipment, weather restraints, etc.). 88-Not Attempted due to Medical Conditions or Safety Concerns. Sit to Lying (QC): 6 Lying to Sitting/Side of Bed(Q: 6 Sit to Stand (QC): 6 Weight Bearing Left Lower Extremity: Left Weight Bearing/Tolerated Gait Training Does the Patient Walk?: Yes Distance: 600' Walk 10 feet (QC): 6 Walk 50 ft with 2 Turns(QC): 6 Walk 150 ft (QC): 6 Gait Assistive Device: FWW antalgic,reciprocal pattern Exercises Supine Ex: Quad Set, Heel Slides Supine Reps: 15 Seated Therapy Exercises: Long arc quads Seated Reps: 15 Assessment Current Status: Excellent Progress PT Assisted Goals Assisted Goals PT Assisted Goals Time Frame: May 15, 2020 Roll Left & Right (QC): 6 Sit to Lying (QC): 6 Lying-Sitting on Side/Bed(QC): 6 Sit to Stand (QC): 6 Chair/Job-nr-Usfkr Xfer(QC): 6 Walk 10 feet (QC): 6 Walk 50ft with 2 Turns (QC): 6 Walk 150 ft (QC): 6 1 Step (curb) (QC): 6 4 Steps (QC): 6 PT Plan Treatment/Plan Treatment Plan: Continue Plan of Care Treatment Plan: Education, Functional Activity Apple, Functional Strength, Gait, Safety, Therapeutic Exercise, Transfers Treatment Duration: May 15, 2020 Frequency: 11 times per week Estimated Hrs Per Day: .25 hour per day Patient and/or Family Agrees t: Yes Time/GCodes Time In: 1418 Time Out: 1432 Total Billed Treatment Time: 14 Total Billed Treatment 1 visit FA 14 min DEYANIRA JESSICA PT May 09, 2020 14:43
[2020-05-09 16:28] VITALS: BP 128/81
--- NOTE | 2020-05-09 18:13 | DISCHARGE SUMMARY ---
DATE OF SERVICE: DIAGNOSIS: Left knee primary osteoarthritis. PROCEDURE: Left total knee arthroplasty. SUMMARY: The patient is a 59-year-old gentleman who underwent a left total knee arthroplasty on the day of admission. Postoperatively, he did well. At the time of discharge, his wound was clean and dry, had no calf tenderness. Negative Homans sign. He was tolerating his diet well and tolerating pain with oral pain medication. CONDITION AT DISCHARGE: Good. DISCHARGE DIET: Regular. FOLLOWUP: Followup is in three weeks. Home physical therapy will be arranged. DISCHARGE MEDICATIONS: Home medications, one aspirin per day for 30 days and Percocet as needed for pain. Job ID: [id number] DocumentID: [id number] Dictated Date: 05/09/2020 08:00:55 Sales/Marketing Date: 05/09/2020 18:12:00 Dictated By: CHAI SHAY MD
[2020-05-09 19:17] VITALS: BP 126/70
[2020-05-10] VITALS: BP 120/76
[2020-05-10] MEDS: oxyCODONE/APAP 5/325MG (PERCOCET 5) TABLET PO PRN ×3 (02:09→08:05)
[2020-05-10 04:00] VITALS: BP 165/86
[2020-05-10 05:15] LABS: HEMOGLOBIN 11.7 g/dL (13.3-17.7); MEAN PLATELET VOLUME 10.3 fL (9.0-12.2); WHITE BLOOD COUNT 10.4 10^3/uL (4.3-11.0)
[2020-05-10] MEDS: MULTIVIT W/MINERALS TAB (THERAGRAN M) PO SCH (05:55)
[2020-05-10] MEDS: NS IV 1000 ML 1,000 ML IV SCH (06:00)
--- NOTE | 2020-05-10 07:09 | Progress Note ---
Standard Progress Note Progress Notes/Assess & Plan Date Seen by a Provider: May 10, 2020 Time Seen by a Provider: 07:08 Progress/Assessment & Plan post op check no complaints radiographs--HW well positioned without fracture LLE-- 2 plus DP pulse with brisk cap refill, sensation intact throughout to light touch. intact DF and PF of toes and ankle s/p LTKA mobilize as able Final Diagnosis knee hurting this AM Vital Signs Date Time Temp Pulse Resp B/P (MAP) Pulse Ox O2 Delivery O2 Flow Rate FiO2 05/10/20 06:01 18 05/10/20 04:00 35.5 77 19 165/86 (112) 95 Room Air 05/10/20 00:00 37.4 94 16 120/76 (91) 92 Room Air 05/09/20 20:20 95 Room Air 05/09/20 19:20 37.1 05/09/20 19:17 37.1 72 17 126/70 (88) 90 Room Air 05/09/20 18:00 18 05/09/20 16:28 36.9 56 16 128/81 (97) 93 Room Air 05/09/20 12:00 36.7 67 18 125/69 (87) 93 Room Air 05/09/20 08:00 Room Air 05/09/20 08:00 36.2 60 16 126/67 (86) 98 Room Air I & O 05/10/20 07:00 Intake Total 3650 ml Output Total 1750 ml Balance 1900 ml Laboratory Tests Test 05/10/20 04:47 Range/Units White Blood Count 10.4 4.3-11.0 10^3/uL Red Blood Count 3.70 L 4.30-5.52 10^6/uL Hemoglobin 11.7 L 13.3-17.7 g/dL Hematocrit 36 L 40-54 % Mean Corpuscular Volume 96 80-99 fL Mean Corpuscular Hemoglobin 32 25-34 pg Mean Corpuscular Hemoglobin Concent 33 32-36 g/dL Red Cell Distribution Width 12.8 10.0-14.5 % Platelet Count 184 130-400 10^3/uL Mean Platelet Volume 10.3 9.0-12.2 fL Creatinine 0.82 0.60-1.30 MG/DL LLE--incision clean and dry. No calf tenderness. Neg Ishan's. s/p LTKA doing well DC after PT today CHAI SHAY MD May 10, 2020 07:09
[2020-05-10] MEDS ORDERED: morphine INJ 4 MG/ML 1 ML (VIAL/SYRINGE) IVP PRN (07:15)
[2020-05-10 08:00] VITALS: BP 166/96
[2020-05-10] MEDS: ENOXAPARIN 30 MG/0.3 ML (LOVENOX) SYR SC SCH (08:05)
[2020-05-10] MEDS: SENNA W/DOCUSATE (SENOKOT S) TABLET PO SCH (08:05)
[2020-05-10] MEDS: ASPIRIN E.C. 81 MG (ECOTRIN) TAB PO SCH (08:05)
--- NOTE | 2020-05-10 09:35 | Physical Therapy Daily Note ---
PT Daily Note-Current Subjective Patient has increase c/o left knee pain. Meds being issued by RN. Pain Numeric Pain Scale: 8 Location: Left Location Body Site: Knee Pain Description: Acute Mental Status Patient Orientation: Normal For Age Transfers SCALE: Activities may be completed with or without assistive devices. 8-Bkngdxdbki-suvqsgz completes the activity by him/herself with no assistance from a helper. 5-Set-up or Clean-up Assistance-helper sets up or cleans up; patient completes activity. [place] assists only prior to or following the activity. 4-Supervision or Touching Assistance-helper provides verbal cues and/or touching/steadying and/or contact guard assistance as patient completes activity. Assistance may be provided throughout the activity or intermittently. 3-Partial/Moderate Assistance-helper does LESS THAN HALF the effort. [place] lifts, holds or supports trunk or limbs, but provides less than half the effort. 2-Substantial/Maximal Assistance-helper does MORE THAN HALF the effort. [place] lifts or holds trunk or limbs and provides more than half the effort. 7-Gccmmouyj-dhhdwn does ALL the effort. Patient does none of the effort to complete the activity. Or, the assistance of 2 or more helpers is required for the patient to complete the activity. If activity was not attempted, code reason: 7-Patient Refused. 9-Not Applicable-not attempted and the patient did not perform the activity be fore the current illness, exacerbation or injury. 10-Not Attempted due to Environmental Limitations-(lack of equipment, weather restraints, etc.). 88-Not Attempted due to Medical Conditions or Safety Concerns. Roll Left & Right (QC): 6 Sit to Lying (QC): 6 Lying to Sitting/Side of Bed(Q: 6 Sit to Stand (QC): 6 Chair/Mnm-yj-Zzxma Xfer(QC): 6 Weight Bearing Left Lower Extremity: Left Weight Bearing/Tolerated Gait Training Does the Patient Walk?: Yes Distance: 300' Walk 10 feet (QC): 6 Walk 50 ft with 2 Turns(QC): 6 Walk 150 ft (QC): 6 Walking 10ft/uneven surface-QC: 6 Gait Assistive Device: FWW antalgic/functional Stair Training declined Exercises Supine Ex: Ankle pumps, Quad Set, Heel Slides, Straight leg raise Supine Reps: 15 Seated Therapy Exercises: Long arc quads Seated Reps: 20 Assessment Patient declined stair training due to recent right TKR. Patient reports compliance with HEP issued by physician in preop. Patient to dismiss to home this a.m. PT Stamp Redemption Clerk Goals Intermediate Goals PT Intermediate Goals Time Frame: May 15, 2020 Roll Left & Right (QC): 6 Sit to Lying (QC): 6 Lying-Sitting on Side/Bed(QC): 6 Sit to Stand (QC): 6 Chair/Qfn-av-Nfbbz Xfer(QC): 6 Walk 10 feet (QC): 6 Walk 50ft with 2 Turns (QC): 6 Walk 150 ft (QC): 6 1 Step (curb) (QC): 6 4 Steps (QC): 6 PT Plan Treatment/Plan Treatment Plan: Discontinue PT Treatment Plan: Education, Functional Activity Apple, Functional Strength, Gait, Safety, Therapeutic Exercise, Transfers Treatment Duration: May 15, 2020 Frequency: 11 times per week Estimated Hrs Per Day: .25 hour per day Patient and/or Family Agrees t: Yes Time/GCodes Time In: 750 Time Out: 813 Total Billed Treatment Time: 23 Total Billed Treatment 1 visit EX 9 min GT 14 min DEYANIRA JESSICA PT May 10, 2020 09:35
[2020-05-10 10:05] VITALS: BP 165/86
== END 2020-05-10 10:05 | disposition home health service (06) | DRG 470 ==
LOC: 4TH 06:01 → SURG 06:02 → 4TH 10:59
PROVIDERS: ADMIT Orthopaedic Surgery; ATTEND Orthopaedic Surgery
PROC: 0SRD0J9 Replacement of Left Knee Joint with Synthetic Substitute, Cemented, Open Approach (ICD-10-PCS; principal; 2020-05-08 07:28)
DX: M17.12 Unilateral primary osteoarthritis, left knee (principal)
CPT/HCPCS: 36415; 73560; 82565; 85014; 85018; 85027; 86850; 86900; 86901